=== PATIENT | female | born 1990 | race Caucasian/White ===

== ENCOUNTER → 2019-11-12 13:04 | Outpatient (CLI) | payer OTHER, SELFPAY ==
[2019-11-12 11:46] VITALS: BMI 26.9
[2019-11-12 13:27] LABS: Absolute Lymphocyte Count 2.48 X10^3/uL (0.83-4.51); Absolute Neutrophil Count 9.4 X10^3/uL (2.0-7.7); Basophil# 0.03 X10^3/uL; Basophil% 0.2 % (0-1); Eosinophil# 0.05 X10^3/uL; Eosinophils% 0.4 % (0-5); Hematocrit 38.1 % (37-47); Hemoglobin 12.9 g/dL (12.0-15.0); Lymphocyte # 2.48 X10^3/ul (4.0); Lymphocyte % 18.7 % (19-41); Mean Corp Hgb Conc 33.9 g/dL (32-36); Mean Corpuscular Hgb 31.3 pg (27.0-32.0); Mean Corpuscular Volume 92.5 fL (81-99); Mean Platelet Vol. 10.3 fl (6.2-12.0); Monocyte# 1.29 X10^3/uL; Monocyte% 9.7 % (0-10); NRBC Flagged by Analyzer 0 % (0-5); Neutrophil # 9.38 X10^3/uL (2.7-7.7); Neutrophil % 70.6 % (47-70); Platelet Count 279 K/mm3 (150-450); RBC Distribution Width CV 11.9 % (11.6-14.6); Red Blood Count 4.12 M/mm3 (4.2-5.4); White Blood Count 13.3 K/mm3 (4.4-11.0)
[2019-11-12 15:51] LABS: HIV - WCH Non-Reactive (Nonreactive); Hepatitis B Surface Antigen Non-Reactive (Nonreactive); Hepatitis C Antibody Non-Reactive (Nonreactive); Rubella IgG 349.2 IU/mL
[2019-11-12 16:35] LABS: Amphetamine Urine VISTA NEGATIVE (<1000 ng/mL); Barbiturate Urine VISTA NEGATIVE (< 200 ng/mL); Benzodiazepine Urine VISTA NEGATIVE (< 200 ng/mL); Cocaine Urine VISTA NEGATIVE (< 300 ng/mL); Ecstacy Urine VISTA NEGATIVE (< 500 ng/mL); Methadone Urine VISTA NEGATIVE (< 300 ng/mL); PCP Urine VISTA NEGATIVE (< 25 ng/mL); THC Urine VISTA NEGATIVE (< 50 ng/mL); Vista UDS pH Range 6
[2019-11-12 18:00] LABS: Chlamydia Trachomatis by PCR Negative (Negative); Neisserai gonorrhoeae by PCR Negative (Negative); Probe Check PASS; Sample Adequacy Control PASS; Specimen Processing Control PASS
[2019-11-12 23:59] LABS: Rapid Plasmin Reagin (RPR) NONREACTIVE (NONREACTIVE)
[2019-11-15 20:26] LABS: HPV Reflexed? NOT INDICATED
== END ==
PROVIDERS: PCP Physician Assistant; Referring Provider Obstetrics & Gynecology; Visit Provider Obstetrics & Gynecology
DX: Z34.90 Encounter for supervision of normal pregnancy, unspecified, unspecified trimester (principal); Z12.4 Encounter for screening for malignant neoplasm of cervix
CPT/HCPCS: 36415; 80307; 85025; 86592; 86703; 86762; 86803; 86850; 86900; 86901; 87086; 87088; 87340; 87491; 87591; 88175; G0145

== ENCOUNTER → 2019-11-17 | Outpatient (CLI) | payer OTHER, SELFPAY ==
[2019-11-12 11:46] VITALS: BMI 26.9
== END | disposition home or self-care (01) ==
LOC: PAVLAB 10:31
PROVIDERS: PCP Physician Assistant; Referring Provider Obstetrics & Gynecology; Visit Provider Obstetrics & Gynecology
DX: Z34.81 Encounter for supervision of other normal pregnancy, first trimester (principal); Z31.430 Encounter of female for testing for genetic disease carrier status for procreative management

== ENCOUNTER → 2020-03-12 | Outpatient (CLI) | payer OTHER, SELFPAY ==
[2020-02-19 14:10] VITALS: BMI 27.8
[2020-03-12 17:29] LABS: Absolute Neutrophil Count 9.4 X10^3/uL (2.0-7.7); Basophil# 0.06 X10^3/uL; Basophil% 0.4 % (0-1); Eosinophils% 0.7 % (0-5); Hematocrit 35.2 % (37-47); Hemoglobin 11.6 g/dL (12.0-15.0); Lymphocyte % 19.6 % (19-41); Mean Corpuscular Hgb 32.8 pg (27.0-32.0); Mean Corpuscular Volume 99.4 fL (81-99); Mean Platelet Vol. 10.4 fl (6.2-12.0); Monocyte# 1.21 X10^3/uL; Monocyte% 8.8 % (0-10); NRBC Flagged by Analyzer 0 % (0-5); Neutrophil # 9.43 X10^3/uL (2.7-7.7); Neutrophil % 68.5 % (47-70); Platelet Count 241 K/mm3 (150-450); RBC Distribution Width CV 12.6 % (11.6-14.6); RBC Distribution Width SD 45.3 fl (35.1-43.9); Red Blood Count 3.54 M/mm3 (4.2-5.4); White Blood Count 13.8 K/mm3 (4.4-11.0)
[2020-03-12 17:54] LABS: ALB/GLOB Ratio 0.7 RATIO (0.9-2.4); AST(SGOT) 20 U/L (15-37); Alanine Aminotransfer ALT/SGPT 33 U/L (13-56); Albumin, Serum 2.6 g/dL (3.2-5.0); Alkaline Phosphatase 67 U/L (45-117); Anion Gap 6 (5-15); BUN 8 mg/dL (7-18); BUN/Creat Ratio 12.3 RATIO (10-20); Chloride 107 mmol/L (98-107); Creatinine, Serum 0.65 mg/dL (0.55-1.02); EST Glomerular Filtration Rate 114 mL/min (>60); Est Glom Filt Rate - Afr Amer 138 mL/min (>60); Globulin 3.9 g/dL (2.2-4.2); Glucose 136 mg/dL (74-106); Glucose Challenge Gest 1H 50g 136 mg/dL (70-140); Potassium 3.4 mmol/L (3.5-5.1); Protein, Total 6.5 g/dL (6.4-8.2); Sodium Level 137 mmol/L (136-145)
== END | disposition home or self-care (01) ==
LOC: LAB 16:27
PROVIDERS: PCP Physician Assistant; Referring Provider Obstetrics & Gynecology; Visit Provider Obstetrics & Gynecology
DX: Z34.00 Encounter for supervision of normal first pregnancy, unspecified trimester (principal)
CPT/HCPCS: 36415; 80053; 82950; 85025

== ENCOUNTER → 2020-03-18 | Outpatient (CLI) | payer OTHER, SELFPAY ==
[2020-03-15 10:34] VITALS: BMI 27.8
[2020-03-18 10:56] LABS: Glucose GTT-Gestation. Fasting 68 mg/dL (<105)
[2020-03-18 11:54] LABS: Glucose GTT-Gestational 1 Hr 134 mg/dL (<190)
[2020-03-18 13:40] LABS: Glucose GTT-Gestational 2 Hr 143 mg/dL (<165)
[2020-03-18 13:46] LABS: Glucose GTT-Gestational 3 Hr 136 L (<145)
== END | disposition home or self-care (01) ==
LOC: LAB 10:02
PROVIDERS: PCP Physician Assistant; Referring Provider Obstetrics & Gynecology; Visit Provider Obstetrics & Gynecology
DX: Z13.1 Encounter for screening for diabetes mellitus (principal)
CPT/HCPCS: 36415; 82951; 82952

== ENCOUNTER → 2020-05-17 | Outpatient (CLI) | payer OTHER, SELFPAY ==
[2020-05-13 13:37] VITALS: BMI 30.2
--- NOTE | 2020-05-17 12:28 | US_ITS ---
STUDY: SECOND AND THIRD TRIMESTER OBSTETRICAL ULTRASOUND REASON FOR EXAM: Female, 30 years old growth LMP: 09/02/2019. TECHNIQUE: Transabdominal TECHNICAL QUALITY: Adequate. PRIOR ULTRASOUND: None. FINDINGS: There is a single intrauterine fetus. The fetus is in a cephalic presentation. There is demonstrated cardiac activity with a heart rate of 132 bpm. There is a normal amniotic fluid volume. The largest amniotic fluid pocket measures 5.4 cm. The amniotic fluid index (NIDA) is within normal limits. The placenta is anterior in location and is not low lying. There are Grade 1 placental changes. The cervix measures 3.5 cm in length. The adnexal regions are not visualized. BIOMETRY: BPD: 9.0 cm: 36 weeks, 3 days HC: 32.44 cm: 36 weeks, 5 days AC: 34.85 cm: 38 weeks, 5 days FL: 6.78 cm: 34 weeks, 5 days CI: 81.4% FL/BPD: 75.2% FL/HC: FL/AC: 19.5% HC/AC: 0.93 age by current US: 36 weeks, 3 days. JEWEL by current US: 06/11/2020. Estimated weight: 3193 grams, +/- 473 grams, 69 %. Age by LMP: 37 weeks, 6 days. JEWEL by LMP: 06/08/2020. US/OB Limited With Biometrics IMPRESSION: Single live uterine gestation with mean gestational age of 36 weeks and 3 days. Electronically Signed: Chad Shaw, at 13:31 EDT , Service support ,
== END | disposition home or self-care (01) ==
LOC: OPUS 12:28
PROVIDERS: PCP Physician Assistant; Referring Provider Obstetrics & Gynecology; Visit Provider Obstetrics & Gynecology
DX: Z34.00 Encounter for supervision of normal first pregnancy, unspecified trimester (principal)
CPT/HCPCS: 76816

== ENCOUNTER → 2020-05-20 | Outpatient (CLI) | payer OTHER, SELFPAY | END | disposition home or self-care (01) | LOC: LABSPEC 16:18 | PROVIDERS: PCP Physician Assistant; Visit Provider Obstetrics & Gynecology | DX: Z34.93 Encounter for supervision of normal pregnancy, unspecified, third trimester (principal); Z3A.36 36 weeks gestation of pregnancy | CPT/HCPCS: 87081 ==

== ENCOUNTER 2020-06-05 17:10 | Inpatient (IN) | payer OTHER, SELFPAY ==
[2020-04-12 11:14] VITALS: BMI 26.9
[2020-06-03 10:17] VITALS: BMI 30.5
[2020-06-05] VITALS (30 sets, daily range): BP systolic 96–143; BP diastolic 46–76; PULSE 61–99; TEMP 36.4–37.3; O2SAT 97–100; BMI 29.5
[2020-06-05] MEDS: Lactated Ringers 1,000 ML 200 ML IV ×2 (17:45→19:40)
[2020-06-05 18:06] LABS: Absolute Neutrophil Count 13.2 X10^3/uL (2.0-7.7); Basophil# 0.05 X10^3/uL; Basophil% 0.3 % (0-1); Hematocrit 39.7 % (37-47); Hemoglobin 13.4 g/dL (12.0-15.0); Lymphocyte % 10.9 % (19-41); Mean Corp Hgb Conc 33.8 g/dL (32-36); Mean Corpuscular Volume 97.8 fL (81-99); Mean Platelet Vol. 10.6 fl (6.2-12.0); Monocyte# 1.23 X10^3/uL; Monocyte% 7.4 % (0-10); NRBC Flagged by Analyzer 0 % (0-5); Neutrophil # 13.21 X10^3/uL (2.7-7.7); Platelet Count 236 K/mm3 (150-450); RBC Distribution Width CV 12.5 % (11.6-14.6); Red Blood Count 4.06 M/mm3 (4.2-5.4); White Blood Count 16.5 K/mm3 (4.4-11.0)
[2020-06-05] MEDS: Lactated Ringers 500 ML 999 ML IV (18:06)
[2020-06-05] MEDS: ePHEDrine Sulfate 50 MG/ML Ampul 10 MG IM (19:16)
[2020-06-05] MEDS: fentaNYL-bupivacaine (epidural) 100 ML BAG EPIDURAL (19:41)
[2020-06-05] MEDS: Mag Hydrox/Al Hydrox/Simeth 30 ML UDC PO (19:57)
--- NOTE | 2020-06-05 22:53 | HP.PCM_ITS ---
- Problem List (1) 36 weeks gestation of Status: Acute Comment: covid testing negative testing at work 05/31/20 (2) Abnormal glucose affecting Status: Acute Comment: normal 3 hr. (3) Status: Acute Qualifiers: Comment: NIPT low risk. CARRIER- neg and NTD declined. 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 Is patient in pain?: No Allergies No Known Allergies Allergy (Verified 06/03/20 10:17) Medications acetaminophen 325 mg tablet 325 mg PO ONCE PRN 11/12/19 history Confirmed 06/03/20 famotidine 20 mg tablet 20 mg PO BID 11/12/19 history Confirmed 06/03/20 multivitamin no.47-iron fum 27 mg-folate no.1 1 mg-dha 300 mg capsule cap PO 11/12/19 history Confirmed 06/03/20 Last Menstral Period: 09/02/19 Zika: Zika virus screening: Negative : No PFSH PFSH Medical History Recurrent UTI (Acute) Surgical History No history of previous surgery (Acute) Family History Father Cancer Diabetes Grandmother Breast cancer Cancer Social History (Updated 06/03/20 @ 10:[address] 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 She has had an uncomplicated OB Visit JEWEL Calculator Estimated Delivery Date Method Current WG Current Estimate 06/08/20 LMP (Certain) 39w 2d Expected Delivery Route/Plan Labor Preferences- CB/BF classes: march labor support person: Tia labor intervention preferences: no pain management options preferred: desires natural, but open to epidural especially if induced cut cord/dad catch: yes : yes PP control planned: discussed possible routes of delivery and associated risks: discussed possible delivery modalities and possible indications for each including R/B/A of , VAVD, and CS. questions answered. special requests: Specific Issue/Plans flu vaccine: 04/12 tdap vaccine: given 03/15 rhogam: na LARC form signed: declined movement and labor precautions reviewed. Problem list reviewed and updated with the most current plan of care details and appropriate orders placed. Relevant counseling for the gestational age provided. Continue routine care and follow up unless otherwise noted in visit notes/problem list details Initial Weight: 157 lb Date EGA Weight BP Urine Prot Glucose FHR FuHt Pres Dilation Effaced St Visit Note 12/25/19 16w 2d 154 lb (-3 lb) 124/76 Negative Negative 143 MH-No Vb, LOF. MFM US scheduled. Declines AFP. 01/22/20 20w 2d 158 lb 4 oz (+1 lb 4 oz) 108/70 Negative Negative 140 SM- no vb lof good fm no regular ctx boy 02/19/20 24w 2d 162 lb (+5 lb) 102/64 Negative Negative 140 SM- no vb lof good fm no regular ctx obtain anatomy report. encouraged CB classes 03/15/20 27w 6d 164 lb 6 oz (+7 lb 6 oz) 110/60 Negative Negative 140 SM- planning on CB clsses, will sign up. tdap given. just moved into new house. 04/01/20 30w 2d 168 lb (+11 lb) 100/72 Negative Negative 140 30 SM- no vb lof good fm no regular ctx. discussed control. iud pp planned pp 04/12/20 31w 6d 169 lb 8 oz (+12 lb 8 oz) 128/78 150 30 GP - no LOF, VB, DFM, ctx. CB classes planned this weekend. 04/29/20 34w 2d 172 lb (+15 lb) 118/86 Negative Negative 150 34 Cephalic Sm- no vb lof good fm no regular ctx 05/13/20 36w 2d 176 lb (+19 lb) 118/86 Negative Negative 145 34 Cephalic SM- no vb lof good fm no rgular ctx fh measuring low check growth us 05/20/20 37w 2d 175 lb (+18 lb) 102/74 Negative Negative 140 36 Cephalic 0 SM- no vb lof good fm no regular ctx 05/26/20 38w 1d 94/66 Negative Negative 135 37 Cephalic 1 SM- no vb lof good fm n oregular ctx 06/03/20 39w 2d 178 lb (+21 lb) 100/98 135 37 Cephalic 1 60 -2 SM- no vb lof good fm no regular ctx Diagnostics Diagnostics Diagnostics Gest Glucose Tolerance MG/DL 03/18/20 Glucose 1 Hr 50 gm 136 mg/dL (70-140) 03/12/20 Hgb 11.6 g/dL (12.0-15.0) L 03/12/20 Hct 35.2 % (37-47) L 03/12/20 Details: HIV: Urine Culture: Sequential Screen: NIPT Screen: ROS Const Reports system reviewed and no additional complaints, except as documented Card Reports system reviewed and no additional complaints, except as documented Resp Reports system reviewed and no additional complaints, except as documented GI Reports system reviewed and no additional complaints, except as documented, Reports nausea Reports system reviewed and no additional complaints, except as documented Musc Reports system reviewed and no additional complaints, except as documented all other systems reviewed and negative Exam Const General: cooperative, healthy appearing, comfortable HENMT Head: normal to inspection Nose: external nose normal Face and sinus: normal facial exam Neck Neck: normal visual inspection, full ROM, no lymphadenopathy Thyroid: thyroid normal Chest Chest palpation & inspection: normal inspection of the chest Resp Effort & Inspection: normal respiratory effort GI Inspection: normal to inspection Palpation: soft, other (gravid uterus) Other: vertex and appropriate size for gestational age Other: Cervical Exam: 100/0 Extrem General: pedal edema Assessment & Plan Problems 1. Z34.90 NIPT low risk. CARRIER- neg and NTD declined. anatomy us normal 2. Supervision of normal first Z34.00 PRR JEWEL 06/08/20 surprise for family- boy SPOUSE: TIA 3. Abnormal glucose affecting O99.810 normal 3 hr. 4. 36 weeks gestation of Z3A.36 covid testing negative testing at work 05/31/20 37-year-old at 39 weeks 4 days presents in active labor Patient presents IAL, plan expectant management for , pitocin/AROM if needed. Pain management: Plans epidural. GBS negative. Management of any complications: None I have reviewed the [facility] and made any clinically relevant updates. Orders Orders: POC Urinalysis 2 Dip (Clinic) Today Coding Level of Care Code OB Routine Diagnoses Z34.90 Supervision of normal first Z34.00 Abnormal glucose affecting O99.810 36 weeks gestation of Z3A.36 UPDATE- I have seen the patient and performed any clinically relevant updates to the history and physical exam. Danika Willams MD
--- NOTE | 2020-06-05 22:55 | OP.PCM_ITS ---
Problem List (1) 36 weeks gestation of Status: Acute Comment: covid testing negative testing at work 05/31/20 (2) Abnormal glucose affecting Status: Acute Comment: normal 3 hr. (3) Status: Acute Qualifiers: Comment: NIPT low risk. CARRIER- neg and NTD declined. anatomy us normal (4) Supervision of normal first Status: Acute Qualifiers: Comment: PRR JEWEL 06/08/20 surprise for family- boy SPOUSE: TIA (5) Active labor at term Status: Acute Vaginal Delivery Maternal Presentation: Active Labor 30-year-old G1, P0 at 39 and 4 presents in active labor Amniotic Membrane Rupture Type: Artificial Amniotic Fluid Description: Clear Final JEWEL: 06/08/20 Gestational age: 39 Weeks and 4 Days Date of Procedure: 06/05/20 Pre-Operative Diagnosis: ial Post-Operative Diagnosis: same Surgery/ Procedure Performed: Spontaneous Vaginal Delivery Type of Anesthesia: Epidural Description of Procedure: Patient began pushing and delivered the head in the JLUIS presentation. The head was delivered atraumatically and a loose nuchal cord x1 was identified and the was delivered through it. The anterior and posterior shoulders delivered without complication followed by the rest of the infant and the infant was placed on the maternal abdomen. Delayed cord clamping was employed for approximately 60 seconds. Cord was clamped and cut and gentle traction was applied to the cord and the placenta delivered spontaneously immediately following it was noted to be intact with three-vessel cord. The perineum and vagina were inspected and noted to have a small first-degree perineal laceration that was repaired with a single [id number] stitches 3-0 Vicryl Rapide. EBL was 200 cc. Patient and infant tolerated delivery well. Presentation: JLUIS Placental Delivery Description: Spontaneous Placenta Disposition: [facility] Cord Vessel Description: 3 Vessels Cord Entanglement: Around neck x 1, loose Estimated Blood Loss: 200 A gender: Male Episiotomy Description: None Laceration: Perineal Extension/lac, 1st degree Medications given after delivery: IV Pitocin, IM Methergin - sec mild uterine atony Complications: None Multi Select Codes - Urinary/Genital Urinary/Genital CPT Codes: 57905 Vaginal Delivery [facility]
[2020-06-05] MEDS: Oxytocin 30 units/NS 500 ml 30 UNITS/500 ML IV.SOLN 334 UNITS IV (23:50)
[2020-06-06] VITALS (14 sets, daily range): BP systolic 100–132; BP diastolic 46–72; PULSE 73–99; RESP 16–18; TEMP 36.4–37.1
[2020-06-06] MEDS: Methylergonovine 0.2 MG/ML Ampul IM (00:08)
[2020-06-06] MEDS: Ondansetron 4 MG/2 ML Vial IV (00:14)
[2020-06-06] MEDS: Naproxen 250 MG Tablet 500 MG PO ×2 (00:57→14:32)
--- NOTE | 2020-06-06 06:17 | PCM.PN.OB ---
Patient Problems: Active and Suspected Problems (Last Reviewed 06/03/20 @ 10:17 by Tanesha Rai) Active labor at term (Acute) 36 weeks gestation of (Acute) covid testing negative testing at work 05/31/20 Abnormal glucose affecting (Acute) normal 3 hr. Supervision of normal first (Acute) PRR JEWEL 06/08/20 surprise for family- boy SPOUSE: TIA (Acute) NIPT low risk. CARRIER- neg and NTD declined. anatomy us normal Subjective: Patient doing well without complaints. Tolerating PO. Ambulating and voiding without difficulty. breast feeding well. Denies chest pain, shortness of breath, calf pain/swelling, fevers, chills, lightheadedness. - Physical Exam Vitals/I&O's: Vital Signs Temp Pulse Resp BP Pulse Ox 98.8 F 93 16 108/59 L 98 06/06/20 03:50 06/06/20 03:50 06/06/20 03:50 06/06/20 03:50 06/05/20 19:50 Weight: 172 lb 6.424 oz Body Mass Index (BMI) 29.5 Intake and Output for Last 24 Hours 06/04/20 06/05/20 06/06/20 23:59 23:59 23:59 Intake Total 1716.66 / 1716.66 167 / 167 Output Total 300 / 300 900 / 900 Balance 1416.66 / 1416.66 -733 / -733 General: Alert, Oriented x3 Laboratory Results 06/05/20 17:45: WBC 16.5 H, RBC 4.06 L, Hgb 13.4, Hct 39.7, MCV 97.8, MCH 33.0 H, MCHC 33.8, RDW Std Deviation 45.0 H, RDW Coeff of Roz 12.5, Plt Count 236, MPV 10.6, Immature Gran % (Auto) 1.400 H, Neut % (Auto) 80.0 H, Lymph % (Auto) 10.9 L, Coffee % (Auto) 7.4, Eos % (Auto) 0.0, Baso % (Auto) 0.3, Absolute Neuts (auto) 13.2 H, Absolute Lymphs (auto) 1.80, Nucleated RBC % 0 06/05/20 17:45: Blood Type A POSITIVE, Antibody Screen NEGATIVE Current Medications Acetaminophen (Acetaminophen 500 Mg Tablet) 1,000 mg PO Q8H PRN PRN PRN Reason: Pain Score 1-3 Bisacodyl (Bisacodyl 10 Mg Suppository) 10 mg RECTAL UD PRN PRN Reason: If no BM Dibucaine (Dibucaine 30 Gm Tube) 1 applic TOPICAL TID PRN PRN; Protocol PRN Reason: Discomfort Hydrocortisone (Hydrocortisone 2.5% Crm) 1 applic TOPICAL TID PRN PRN; Protocol PRN Reason: Discomfort Methylergonovine Maleate (Methylergonovine 0.2 Mg/Ml Ampul) 0.2 mg IM X1 PRN PRN Reason: Excess bleeding/uterine atony Last Admin: 06/06/20 00:08 Dose: 0.2 mg Documented by: Naproxen (Naproxen 250 Mg Tablet) 500 mg PO Q8H PRN PRN PRN Reason: Pain Score 1-3 Last Admin: 06/06/20 00:57 Dose: 500 mg Documented by: Ondansetron HCl (Ondansetron 4 Mg/2 Ml Vial) 4 mg IV Q4H PRN PRN PRN Reason: Nausea Last Admin: 06/06/20 00:14 Dose: 4 mg Documented by: Oxycodone HCl (Oxycodone 5 Mg Tablet) 5 - 10 mg PO Q4H PRN PRN PRN Reason: Pain Score 4-10 Senna/Docusate Sodium (Senna/Docusate Sodium 1 Tablet) 1 - 2 tablet PO DAILY PRN PRN PRN Reason: Constipation Simethicone (Simethicone 80 Mg Tablet) 80 mg PO PCHS PRN PRN Reason: Indigestion/Stomach pain Sodium Chloride (0.9% Saline Lock 10 Ml Syringe) 5 - 15 ml IV UD PRN PRN Reason: SALINE FLUSH Medical Necessity - Tobacco Use Smoking Status: Never smoker Assessment/Plan All Active Problems (Last Reviewed 06/03/20 @ 10:17 by Tanesha Rai) Active labor at term (Acute) 36 weeks gestation of (Acute) Abnormal glucose affecting (Acute) Supervision of normal first (Acute) (Acute) Recurrent UTI (Resolved) s/p PPD # 1 1. routine post delivery care 2. breast feeding- support given 3. rh positive 4. rubella immune
--- NOTE | 2020-06-06 06:25 | DCINST_ITS ---
Discharge Diet: No Restrictions Discharge Activity: Return to Normal Activity, May not drive while taking narcotic pain medications., May Shower May resume sexual activity in: 4-6 weeks Call your doctor if your incision/area has: Continuous Slow Oozing, Sudden Increased Bleeding, Increased Pain/ Swelling, Increased Redness, Foul Smelling Discharge Additional Instructions: If you experience any of the following, contact your healthcare provider. * Bleeding that soaks a pad every hour for 2 hours * Fever 100.4 or higher * Unrelieved incision or abdominal pain * Swelling, redness, discharge or bleeding from your incision or episiotomy site * Your incision begins to separate * Problems urinating (including inability to urinate or burning while urinating). * Visual changes * Severe headache * Flu-like symptoms * Pain or redness in one of both of your breasts * Pain, warmth, tenderness or swelling in your legs, especially the calf area * Frequent nausea and vomiting * Symptoms of depression or anxiety If you experience any of the following, call 911 or go to the nearest Emergency Room. * Chest pain * Problems breathing * Seizure activity * Partial or complete paralysis of a body part, slurred speech, weakness or drooping of the face, or a sudden inability to walk or hold your balance Allergies/Adverse Reactions: Allergies No Known Allergies Allergy (Verified 06/03/20 10:17) Medications to take at Discharge acetaminophen 325 mg tablet 325 mg PO ONCE PRN 11/12/19 famotidine 20 mg tablet 40 mg PO BID 11/12/19 multivitamin no.47-iron fum 27 mg-folate no.1 1 mg-dha 300 mg capsule 1 cap PO 11/12/19 Naproxen [Naprosyn] 250 - 500 mg PO Q8H PRN PRN #30 tab 06/06/20 The following prescriptions were given: Naproxen [Naprosyn] 250 - 500 mg PO Q8H PRN PRN #30 tab PRN Reason: MILD PAIN Transmission Status: Pending to [facility] Please Follow Up With: Danika Willams MD - [phone] When: Call to make an appointment with your doctor in 6 weeks. If you had elevated Blood pressure or 4th degree laceration you will need to be seen in 2 weeks. Primary Care Physician: Nilda Anderson PA [Primary Care Provider] - Test Results: Test results from this visit will be discussed in further detail at your follow- up appointment, if applicable.
[2020-06-06] MEDS: Acetaminophen 500 MG Tablet 1000 MG PO (19:57)
[2020-06-07 02:30] VITALS: BP 87/49; PULSE 60; RESP 16; TEMP 36.4
[2020-06-07] MEDS: Acetaminophen 500 MG Tablet 1000 MG PO (04:59)
--- NOTE | 2020-06-07 08:37 | PCM.PN.OB ---
Patient Problems: Active and Suspected Problems (Last Reviewed 06/03/20 @ 10:17 by Tanesha Rai) Active labor at term (Acute) 36 weeks gestation of (Acute) covid testing negative testing at work 05/31/20 Abnormal glucose affecting (Acute) normal 3 hr. Supervision of normal first (Acute) PRR JEWEL 06/08/20 surprise for family- boy SPOUSE: TIA (Acute) NIPT low risk. CARRIER- neg and NTD declined. anatomy us normal Subjective: Patient doing well without complaints. Tolerating PO. Ambulating and voiding without difficulty. [ ] feeding well. Denies chest pain, shortness of breath, calf pain/swelling, fevers, chills, lightheadedness. - Physical Exam Vitals/I&O's: Vital Signs Temp Pulse Resp BP Pulse Ox 97.5 F L 60 16 87/49 L 98 06/07/20 02:30 06/07/20 02:30 06/07/20 02:30 06/07/20 02:30 06/05/20 19:50 Oxygen Delivery Method Room Air Weight: 172 lb 6.424 oz Body Mass Index (BMI) 29.5 Intake and Output for Last 24 Hours 06/05/20 06/06/20 06/07/20 23:59 23:59 23:59 Intake Total 1716.66 / 1716.66 500 / 500 Output Total 300 / 300 900 / 900 Balance 1416.66 / 1416.66 -400 / -400 General: Alert, Oriented x3 Current Medications Acetaminophen (Acetaminophen 500 Mg Tablet) 1,000 mg PO Q8H PRN PRN PRN Reason: Pain Score 1-3 Last Admin: 06/07/20 04:59 Dose: 1,000 mg Documented by: Bisacodyl (Bisacodyl 10 Mg Suppository) 10 mg RECTAL UD PRN PRN Reason: If no BM Dibucaine (Dibucaine 30 Gm Tube) 1 applic TOPICAL TID PRN PRN; Protocol PRN Reason: Discomfort Hydrocortisone (Hydrocortisone 2.5% Crm) 1 applic TOPICAL TID PRN PRN; Protocol PRN Reason: Discomfort Methylergonovine Maleate (Methylergonovine 0.2 Mg/Ml Ampul) 0.2 mg IM X1 PRN PRN Reason: Excess bleeding/uterine atony Last Admin: 06/06/20 00:08 Dose: 0.2 mg Documented by: Naproxen (Naproxen 250 Mg Tablet) 500 mg PO Q8H PRN PRN PRN Reason: Pain Score 1-3 Last Admin: 06/06/20 14:32 Dose: 500 mg Documented by: Ondansetron HCl (Ondansetron 4 Mg/2 Ml Vial) 4 mg IV Q4H PRN PRN PRN Reason: Nausea Last Admin: 06/06/20 00:14 Dose: 4 mg Documented by: Oxycodone HCl (Oxycodone 5 Mg Tablet) 5 - 10 mg PO Q4H PRN PRN PRN Reason: Pain Score 4-10 Senna/Docusate Sodium (Senna/Docusate Sodium 1 Tablet) 1 - 2 tablet PO DAILY PRN PRN PRN Reason: Constipation Simethicone (Simethicone 80 Mg Tablet) 80 mg PO PCHS PRN PRN Reason: Indigestion/Stomach pain Sodium Chloride (0.9% Saline Lock 10 Ml Syringe) 5 - 15 ml IV UD PRN PRN Reason: SALINE FLUSH Medical Necessity - Tobacco Use Smoking Status: Never smoker Assessment/Plan All Active Problems (Last Reviewed 06/03/20 @ 10:17 by Tanesha Rai) Active labor at term (Acute) 36 weeks gestation of (Acute) Abnormal glucose affecting (Acute) Supervision of normal first (Acute) (Acute) Recurrent UTI (Resolved) s/p PPD # 1 1. routine post delivery care 2. breast feeding- support given 3. rh positive 4. rubella immune
[2020-06-07 08:45] VITALS: BP 111/70; PULSE 82; RESP 16; TEMP 37.1
[2020-06-07 13:59] VITALS: BP 103/61; PULSE 77; RESP 16; TEMP 37.1
== END 2020-06-07 14:10 | disposition home or self-care (01) | DRG 807 ==
LOC: WPOUT 17:15 → WP 17:15
PROVIDERS: Admitting Provider Obstetrics & Gynecology; PCP Physician Assistant; Visit Provider Obstetrics & Gynecology
DX: O69.81X0 Labor and delivery complicated by cord around neck, without compression, not applicable or unspecified (principal); Z37.0 Single live birth; O70.0 First degree perineal laceration during delivery; O62.2 Other uterine inertia; Z3A.39 39 weeks gestation of pregnancy
CPT/HCPCS: 59025; 59050; 85025; 86850; 86900; 86901; 99218; J7120; G0378; J2405

== ENCOUNTER → 2021-03-25 16:02 | Outpatient (CLI) | payer OTHER, SELFPAY ==
--- NOTE | 2021-03-25 16:07 | US_ITS ---
INDICATION: RECURRENT UTI EXAMINATION: Ultrasound US Kidney(s) complete (eg, kidneys and bladder) TECHNIQUE: Upton scale and color doppler images were obtained of the kidneys. COMPARISON: None. FINDINGS: RIGHT KIDNEY: 105.9 mL volume. Slight prominence right pelvis likely represents extrarenal pelvis however as a ureteral jet on the right. No caliectasis. No shadowing calculus, focal lesion or perinephric collection is demonstrated. LEFT KIDNEY: 141.8 mL volume. There is no hydronephrosis. No shadowing calculus, focal lesion or perinephric collection is demonstrated. Normal aside ureteral jet demonstrated. URINARY BLADDER: Bladder is distended with anechoic fluid and there is no wall thickening, mass or internal debris. No evidence of pyelonephritis. US/Kidney and Bladder IMPRESSION: Likely right-sided extrarenal pelvis versus less likely slight pelvis dilation. No associated caliectasis. This is favored to represent normal extra renal pelvis. Nonvisualization right ureteral jet can be due to inadequate length of observation. Right-sided obstruction cannot be completely excluded but is felt to be unlikely. Consider short-term follow-up. Electronically Signed: Maynor Lu DO at 23:25 EDT Tel , Service support ,
== END ==
PROVIDERS: PCP Physician Assistant; Referring Provider Urology; Visit Provider Urology
DX: N39.0 Urinary tract infection, site not specified (principal)
CPT/HCPCS: 76770

== ENCOUNTER → 2022-07-27 | Outpatient (CLI) | payer OTHER, SELFPAY ==
[2022-08-01 16:37] LABS: HPV APTIMA, High Risk Negative (Negative)
== END | disposition home or self-care (01) ==
PROVIDERS: PCP Physician Assistant; Visit Provider Obstetrics & Gynecology
DX: Z12.4 Encounter for screening for malignant neoplasm of cervix (principal)
CPT/HCPCS: 87624; 88175; G0145

== ENCOUNTER → 2023-03-15 | Outpatient (CLI) | payer OTHER, SELFPAY ==
[2023-03-19 07:07] LABS: Chlamydia By Nucleic Acid AMP Negative (Negative); Gonococcus By Nucleic Acid AMP Negative (Negative)
== END | disposition home or self-care (01) ==
LOC: LABSPEC 13:55
PROVIDERS: PCP Physician Assistant; Referring Provider Obstetrics & Gynecology; Visit Provider Obstetrics & Gynecology
DX: Z34.90 Encounter for supervision of normal pregnancy, unspecified, unspecified trimester (principal); Z3A.00 Weeks of gestation of pregnancy not specified
CPT/HCPCS: 87086; 87491; 87591

== ENCOUNTER → 2023-03-29 | Outpatient (CLI) | payer OTHER, SELFPAY ==
[2023-03-29 13:51] LABS: Absolute Lymphocyte Count 2.43 X10^3/uL (0.83-4.51); Absolute Neutrophil Count 9.3 X10^3/uL (2.0-7.7); Basophil# 0.04 X10^3/uL; Basophil% 0.3 % (0-1); Eosinophil# 0.15 X10^3/uL; Eosinophils% 1.2 % (0-5); Hematocrit 37.3 % (37-47); Hemoglobin 12.3 g/dL (12.0-15.0); Lymphocyte # 2.43 X10^3/ul (0.83-4.51); Lymphocyte % 18.9 % (19-41); Mean Corpuscular Hgb 32.1 pg (27.0-32.0); Mean Corpuscular Volume 97.4 fL (81-99); Mean Platelet Vol. 10.4 fl (6.2-12.0); Monocyte# 0.87 X10^3/uL; Monocyte% 6.8 % (0-10); NRBC Flagged by Analyzer 0 % (0-5); Neutrophil # 9.27 X10^3/uL (2.7-7.7); Neutrophil % 72.2 % (47-70); Platelet Count 277 K/mm3 (150-450); RBC Distribution Width CV 12.1 % (11.6-14.6); RBC Distribution Width SD 42.8 fl (35.1-43.9); Red Blood Count 3.83 M/mm3 (4.2-5.4); White Blood Count 12.8 K/mm3 (4.4-11.0)
[2023-03-29 14:44] LABS: NATERA MAILED SPECIMEN
[2023-03-29 15:09] LABS: HIV - WCH Non-Reactive (Nonreactive); Hepatitis B Surface Antigen Non-Reactive (Nonreactive); Hepatitis C Antibody Non-Reactive (Nonreactive); Rubella IgG Reactive (Nonreactive); Syphilis Antibodies Non-reactive
== END | disposition home or self-care (01) ==
LOC: PAVLAB 13:16
PROVIDERS: PCP Physician Assistant; Referring Provider Obstetrics & Gynecology; Visit Provider Obstetrics & Gynecology
DX: Z34.81 Encounter for supervision of other normal pregnancy, first trimester (principal)
CPT/HCPCS: 36415; 85025; 86703; 86762; 86780; 86803; 86850; 86900; 86901; 87340

== ENCOUNTER → 2023-08-01 | Outpatient (CLI) | payer OTHER, SELFPAY ==
--- OUTSIDE RECORDS SUMMARY | 2023-08-01 10:45 | XMS RPT_ITS | CCD ---
Author Name Unknown Address [address] [place] [address] Organization [facility] Care Team Providers Care Manager Garage Name Role Phone Laura PHOTOGRAMMETRIC TECHNICIAN.Liyah HUMPHREY Primary Care Provider CAROLINA PHILIP Attending Unavailable LIYAH SANCHEZ Primary Care Unavailable CELIA SAENZ Referring Unavailab YANETH Negro Attending Unavailable ARASELI VANG Primary Care Unavailable CELIA SAENZ Referring Unavailab BEVERLEY Gonzalez Attending Unavailable ARASELI VANG Primary Care Unavailable Allergies Allergy Classification Reported Allergen(s) Allergy Type Date of Onset Reaction(s) Facility (8 sources) Seasonal allergy; Translations: [SEASONAL ALLERGIES] Allergy to substance 9 Other: See Comments [facility] Medications Current Medications Medication Drug Class(es) Dates Sig (Normalized) Sig (Original) doxycycline monohydrate 100 mg oral tablet (1 source) Tetracycline-cla ss Drug Start: 01-06-2022 End: 01-13-2022 take 1 tablet by mouth twice daily doxycycline monohydrate 100 mg tablet Indications: Sinobronchitis Take 1 tablet by mouth twice daily for 7 days. 14 tablet 0 01/06/2022 01/13/2022 Active Completed/Discontinued Medications Medication Drug Class(es) Dates Sig (Normalized) Sig (Original) [id number] 200 actuat albuterol 0.09 mg/actuat metered dose inhaler (8 sources) beta2-Adrenergic Agonist Start: 06-04-2023 take 2 puff(s) by inhalation every four hours as needed albuterol HFA (PROAIR HFA) 90 mcg/actuation inhaler Indications: Mild intermittent extrinsic asthma without complication Inhale 2 Puffs as instructed every 4 hours as needed. 18 g 2 06/04/2023 Active Problems Active Problems Problem Classification Problem Date Documented Date Episodic/Chronic Asthma (9 sources) Uncomplicated allergic asthma; Translations: [Unspecified asthma, uncomplicated] Onset: 12-19-2018 12-19-2018 Chronic Esophageal disorders (7 sources) Gastroesophageal reflux disease without esophagitis; Translations: [Gastro-esophageal reflux disease without esophagitis] Onset: 12-19-2018 12-19-2018 Chronic Inflammation; infection of eye (except that caused by tuberculosis or sexually transmitteddisease) (1 source) Bacterial conjunctivitis; Translations: [Unspecified conjunctivitis] Episodic Other upper respiratory infections (1 source) Chronic sinusitis; Translations: [Chronic sinusitis, unspecified] Chronic Viral infection (2 sources) Herpes zoster with complication; Translations: [Zoster with other complications] Onset: 06-04-2023 06-04-2023 Episodic Past or Other Problems Problem Classification Problem Date Documented Date Episodic/Chronic Abdominal pain (12 sources) Pain in female pelvis; Translations: [Pelvic and perineal pain] Onset: 10-14-2021 Episodic Allergic reactions (7 sources) Environmental allergy; Translations: [Other allergy status, other than to drugs and biological substances] Onset: 12-19-2018 12-19-2018 Episodic Other diseases of bladder and urethra (12 sources) Urethral spasm; Translations: [Unspecified urethral stricture, male, unspecified site] Onset: 10-14-2021 Episodic Results Test Name Value Interpretation Reference Range Facil ity Vital Signs Date Time Vital Sign Value Performing Clinician Joãoi seamusy 06-04-2023 10:16-0500 Body weight 76.2 kg Carolina Philip APRN.CNP Work Phone: [facility] 06-04-2023 10:16-0500 Diastolic blood pressure 62 mm[Hg] Carolina Philip APRN.CNP Work Phone: [facility] 06-04-2023 10:16-0500 Heart rate 88 /min Carolina Philip APRN.CNP Work Phone: [facility] 06-04-2023 10:16-0500 Respiratory rate 14 /min Carolina Philip APRN.CNP Work Phone: [facility] 06-04-2023 10:16-0500 Systolic blood pressure 110 mm[Hg] Carolina Philip APRN.SUPERVISOR PRESSING DEPARTMENT Work Phone: [facility] 01-06-2022 16:30-0400 Body temperature 97.81 [degF] Feliz Ryan PHOTOGRAMMETRIC TECHNICIAN.SUPERVISOR PRESSING DEPARTMENT Work Phone: [facility] 01-06-2022 16:30-0400 Body weight 67.5 kg Feliz Ryan PHOTOGRAMMETRIC TECHNICIAN.SUPERVISOR PRESSING DEPARTMENT Work Phone: [facility] 01-06-2022 16:30-0400 Diastolic blood pressure 62 mm[Hg] Feliz Ryan PHOTOGRAMMETRIC TECHNICIAN.SUPERVISOR PRESSING DEPARTMENT Work Phone: [facility] 01-06-2022 16:30-0400 Heart rate 72 /min Feliz Ryan PHOTOGRAMMETRIC TECHNICIAN.SUPERVISOR PRESSING DEPARTMENT Work Phone: [facility] 01-06-2022 16:30-0400 Respiratory rate 21 /min Feliz Ryan PHOTOGRAMMETRIC TECHNICIAN.SUPERVISOR PRESSING DEPARTMENT Work Phone: [facility] 01-06-2022 16:30-0400 SaO2% (BldA) [Mass fraction] 99 % Feliz Ryan PHOTOGRAMMETRIC TECHNICIAN.SUPERVISOR PRESSING DEPARTMENT Work Phone: [facility] 01-06-2022 16:30-0400 Systolic blood pressure 108 mm[Hg] Feliz Ryan PHOTOGRAMMETRIC TECHNICIAN.SUPERVISOR PRESSING DEPARTMENT Work Phone: [facility] Encounters Encounter Date Encounter Type Care Provider Facility Start: 07-26-2023 End: 07-26-2023 ambulatory CELIA SAENZ [facility] Start: 06-04-2023 End: 06-05-2023 ambulatory CAROLINA PHILIP Facility:[facility] Start: 06-04-2023 End: 06-04-2023 Patient encounter procedure Carolina Philip PHOTOGRAMMETRIC TECHNICIAN.SUPERVISOR PRESSING DEPARTMENT Work Phone: [facility] Plan of Treatment Date Care Activity Detail Author Start: 03-15-2030 Urine microalbumin profile DTaP,Tdap,Td Vaccine (8 - Td or Tdap) [facility] Start: 07-27-2027 HPV Testing HPV Testing [facility] Start: 11-11-2024 PAP TESTING PAP TESTING [facility] Start: 01-28-2025 Urine microalbumin profile DTAP,TDAP,TD (7 - Td or Tdap) [facility] Start: 06-04-2024 Annual PCP Team Airplane Pilot saman Disease Visit Annual PCP Team Chronic Disease Visit [facility] Start: 03-23-2023 Covid-19 Vaccine ( season) Covid-19 Vaccine ( season) [facility] Start: 07-23-2022 Depression Assessment Depression Ass essment [facility] Start: 03-23-2022 Influenza vaccination INFLUENZA (Sea son Ended) [facility] Start: 03-23-2021 Influenza vaccination INFLUENZA (#1) [facility] Start: 2021 HPV TESTING HPV TESTING [facility] Start: 12-20-2019 ANNUAL PCP TEAM CARD TABLE ATTENDANT SAMAN DISEASE VISIT ANNUAL PCP TEAM CHRONIC DISEASE VISIT [facility] Start: 2009 HEPATITIS C SCREENING HEPATITIS C SC REENING [facility] Start: 2009 HIV SCREENING HIV SCREENING [facility] Start: 2009 SPIROMETRY SPIROMETRY [facility] Start: 2003 Adult depression screening assessment DEPRESSION SCREENING [facility] Start: 05-01-2002 Hepatitis B Vaccine (3 of 3 - 3-dose series) Hepatitis B Vaccine (3 of 3 - 3-dose series) [facility] Start: 1997 PNEUMOCOCCAL (1 - PCV) PNEUMOCOCCAL (1 - PCV) [facility] Start: 1997 Pneumococcal vaccination Pneum ococcal Vaccine (1 - PCV) [facility] Immunizations Immunization Date Immunization Notes Care Provider Romero gregg 05-31-2018 influenza, injectabl e, quadrivalent, contains preservative Amarilys Bailey PT Work Phone: [facility] 08-19-2014 tetanus toxoid, redu bill diphtheria toxoid, and acellular pertussis vaccine, adsorbed Amarilys Bailey PT Work Phone: [facility] 03-04-2002 hepatitis B vaccine, adult dosage Amarilys Bailey PT Work Phone: [facility] 01-09-2002 diphtheria, tetanus toxoids and acellular pertussis vaccine, unspecified formulation Amarilys Bailey PT Work Phone: [facility] 01-09-2002 hepatitis A vaccine, unspecified formulation Amarilys Bailey PT Work Phone: [facility] 01-09-2002 hepatitis B vaccine, adult dosage Amarilys Bailey PT Work Phone: [facility] 01-09-2002 measles, mumps, rube lla, and varicella virus vaccine Amarilys Bailey PT Work Phone: [facility] 05-03-1993 diphtheria, tetanus toxoids and acellular pertussis vaccine, unspecified formulation Amarilys Bailey PT Work Phone: [facility] 05-03-1993 haemophilus influenz ae type b vaccine, HbOC conjugate Amarilys Bailey PT Work Phone: [facility] 05-03-1993 measles, mumps, rube lla, and varicella virus vaccine Amarilys Bailey PT Work Phone: [facility] 05-03-1993 poliovirus vaccine, inactivated Amarilys Bailey PT Work Phone: [facility] 1991 diphtheria, tetanus toxoids and acellular pertussis vaccine, unspecified formulation Amarilys Bailey PT Work Phone: [facility] 1991 haemophilus influenz ae type b vaccine, HbOC conjugate Amarilys Bailey PT Work Phone: [facility] 1991 poliovirus vaccine, inactivated Amarilys Bailey PT Work Phone: [facility] 1991 diphtheria, tetanus toxoids and acellular pertussis vaccine, unspecified formulation Amarilys Bailey PT Work Phone: [facility] 1991 haemophilus influenz ae type b vaccine, HbOC conjugate Amarilys Bailey PT Work Phone: [facility] 1991 poliovirus vaccine, inactivated Amarilys Bailey PT Work Phone: [facility] 1991 diphtheria, tetanus toxoids and acellular pertussis vaccine, unspecified formulation Amarilys Bailey PT Work Phone: [facility] 1991 haemophilus influenz ae type b vaccine, HbOC conjugate Amarilys Bailey PT Work Phone: [facility] 1991 poliovirus vaccine, inactivated Amarilys Bailey PT Work Phone: [facility] Payers Date Payer Category Payer Unknown [facility] [employer] [place] [employer] [id number] 2020-Present [phone] [address] [place] [address] PPO [id number] 2020 Unknown [facility] [employer] [place] [employer] [id number] 2020-Present [phone] [address] [place] [address] PPO [id number] 2020 Unknown [id number] 1991 Unknown [id number] 1991 Unknown [id number] Unknown [id number] Social History Date Type Detail Facility Start: 02-07-2018 Tobacco smoking stat [facility] Never smoked tobacco [facility] Start: 02-07-2018 Tobacco use and exposure Smoke less tobacco non-user [facility] Start: 1991 Sex Assigned At Not on file [facility] Start: 08-20-2021 End: 09-19-2021 Exposure to SARS-CoV-2 (event) Not sure [facility] Start: 07-01-2020 End: 04-14-2022 History of Social function [facility] Start: 07-01-2020 End: 04-14-2022 Tobacco use panel [facility] National Score (1-10 0), lower number is lower risk Not on file [facility] Clinical Notes 10-14-2021 to 06-04-2023 Addendum Note - Carolina Philip APRN.SUPERVISOR PRESSING DEPARTMENT - 06/04/2023 10:37 AM Carolina Shine APRN.SUPERVISOR PRESSING DEPARTMENT - 06/04/2023 10:18 AM Jessica Ryan APRN.[facility] - 01/06/2022 6:01 PM EDT Note Date & Type Note Facility 06-04-2023 Note HNO ID: [id number] Author: Carolina Philip APRN.SUPERVISOR PRESSING DEPARTMENT Service: ? Author Type: Nurse Practitioner Type: Progress Notes Filed: 06/04/2023 10:34 AM Note Text: Chief Complaint Patient presents with: Rash: X3 days HPI Teja Conroy is a 33 year old female who presents here today for Above Complaints.. Patient presents for rash to back. Patient reports rash started Sunday night and is painful to the touch. Patient reports she recently had covid and is currently 20 weeks . Past medical history, appointments, medications, allergies reviewed. Previous Medical History No past medical history on file. Previous Surgical History PAST SURGICAL HISTORY Procedure Laterality Date OTHER wisdom teeth extraction Family History FAMILY HISTORY Problem Relation Age of Onset Prostate Cancer Father other (testicular cancer) Father other (prediabetes) Father other (migraines) Sister other (atypical cervical cells) Sister Thyroid Brother other (acid reflux) Sister Patient Allergies ALLERGIES Allergen Reactions Seasonal Allergies Other: See Comments Current Medications Current Outpatient Medications on File Prior to Visit Medication Sig cetirizine HCl (ZYRTEC ORAL) Take by mouth. trimethoprim-polymyxin (POLYTRIM) 10,000 unit- 1 mg/mL ophthalmic solution Use 1 Drop in the right eye four times daily. (Patient not taking: Reported on 04/14/2022) CRANBERRY ORAL Take by mouth. (Patient not taking: Reported on 01/06/2022 ) famotidine (PEPCID ORAL) Take by mouth. omeprazole (PRILOSEC) 20 mg capsule Take 1 capsule by mouth daily before breakfast. 1/2 hr before meal. (Patient not taking: Reported on 03/19/2021 ) albuterol HFA (PROAIR HFA) 90 mcg/actuation inhaler Inhale 2 Puffs as instructed every 4 hours as needed. No current facility-administered medications on file prior to visit. Social History Social History Tobacco Use Smoking status: Never Smokeless tobacco: Never Review of Symptoms REVIEW OF SYSTEMS SEE HPI EXAM: BP 110/62 Pulse 88 Resp 14 Wt 76.2 kg (168 lb) LMP 12/10/2018 BMI 28.84 kg/m? General Appearance: Well appearing, alert, in no acute distress, well-hydrated, well nourished.. Skin: Positives: Rash: Raised blistery rash to left upper back, painful to touch. No drainage noted. Health Maintenance List Pneumococcal Vaccine(1 - PCV) Never done Hepatitis B Vaccine(3 of 3 - 3-dose series) due on 05/01/2002 Spirometry Never done Hepatitis C Screening Never done HIV Screening Never done Annual PCP Team Chronic Disease Visit due on 12/20/2019 Depression Assessment Never done Covid-19 Vaccine( season) due on 03/23/2023 Pap Testing due on 11/11/2024 HPV Testing due on 07/27/2027 DTaP,Tdap,Td Vaccine(8 - Td or Tdap) due on 03/15/2030 Influenza Vaccine Completed HPV Vaccine Aged Out ASSESSMENT/PLAN: 1. Herpes zoster with complication - ICD9: 053.8, ICD10: B02.8 -Discussed with Marilee Mcleod CNP at [facility] as patient is currently 20 weeks . - VALACYCLOVIR 1 GRAM TABLET Carolina Philip APRN.CNP [facility] 06-04-2023 Miscellaneous Notes Addended by: CAROLINA PHILIP on: 06/04/2023 10:37 AM Modules accepted: Orders documented in this encounter [facility] 06-04-2023 History of Presen t illness Narrative Chief Complaint Patient presents with: Rash: X3 days HPI Teja Conroy is a 33 year old female who presents here today for Above Complaints.. Patient presents for rash to back. Patient reports rash started day night and is painful to the touch. Patient reports she recently had covid and is currently 20 weeks . Past medical history, appointments, medications, allergies reviewed. Previous Medical History No past medical history on file. Previous Surgical History PAST SURGICAL HISTORY Procedure Laterality Date OTHER wisdom teeth extraction Family History FAMILY HISTORY Problem Relation Age of Onset Prostate Cancer Father other (testicular cancer) Father other (prediabetes) Father other (migraines) Sister other (atypical cervical cells) Sister Thyroid Brother other (acid reflux) Sister Patient Allergies ALLERGIES Allergen Reactions Seasonal Allergies Other: See Comments Current Medications Current Outpatient Medications on File Prior to Visit Medication Sig cetirizine HCl (ZYRTEC ORAL) Take by mouth. trimethoprim-polymyxin (POLYTRIM) 10,000 unit- 1 mg/mL ophthalmic solution Use 1 Drop in the right eye four times daily. (Patient not taking: Reported on 04/14/2022) CRANBERRY ORAL Take by mouth. (Patient not taking: Reported on 01/06/2022 ) famotidine (PEPCID ORAL) Take by mouth. omeprazole (PRILOSEC) 20 mg capsule Take 1 capsule by mouth daily before breakfast. 1/2 hr before meal. (Patient not taking: Reported on 03/19/2021 ) albuterol HFA (PROAIR HFA) 90 mcg/actuation inhaler Inhale 2 Puffs as instructed every 4 hours as needed. No current facility-administered medications on file prior to visit. Social History Social History Tobacco Use Smoking status: Never Smokeless tobacco: Never Review of Symptoms REVIEW OF SYSTEMS SEE HPI EXAM: BP 110/62 Pulse 88 Resp 14 Wt 76.2 kg (168 lb) LMP 12/10/2018 BMI 28.84 kg/m General Appearance: Well appearing, alert, in no acute distress, well-hydrated, well nourished.. Skin: Positives: Rash: Raised blistery rash to left upper back, painful to touch. No drainage noted. Health Maintenance List Pneumococcal Vaccine(1 - PCV) Never done Hepatitis B Vaccine(3 of 3 - 3-dose series) due on 05/01/2002 Spirometry Never done Hepatitis C Screening Never done HIV Screening Never done Annual PCP Team Chronic Disease Visit due on 12/20/2019 Depression Assessment Never done Covid-19 Vaccine(2022- season) due on 03/23/2023 Pap Testing due on 11/11/2024 HPV Testing due on 07/27/2027 DTaP,Tdap,Td Vaccine(8 - Td or Tdap) due on 03/15/2030 Influenza Vaccine Completed HPV Vaccine Aged Out ASSESSMENT/PLAN: 1. Herpes zoster with complication - ICD9: 053.8, ICD10: B02.8 -Discussed with Marilee Mcleod CNP at [facility] as patient is currently 20 weeks . - VALACYCLOVIR 1 GRAM TABLET Carolina Philip APRN.SUPERVISOR PRESSING DEPARTMENT documented in this encounter [facility] 01-06-2022 History of Presen t illness Narrative Subjective HPI HPI Teja Conroy is a 31 year old female who presents today for CC of cough, congestion. This started 1 week ago/not improving. Has tried otc medication for relief. Symptoms are worsened by nothing. Risk factors sick exposures at home. Right eye redness/drainage for 1 day. Denies vision change. .Patient presents with: Conjunctivitis: right eye started today Acute Visit: flu like symptoms x 1 week No past medical history on file. PAST SURGICAL HISTORY Procedure Laterality Date OTHER wisdom teeth extraction ALLERGIES Seasonal Allergies MEDICATIONS famotidine (PEPCID ORAL) Take by mouth. albuterol HFA (PROAIR HFA) 90 mcg/actuation inhaler Inhale 2 Puffs as instructed every 4 hours as needed. doxycycline monohydrate 100 mg tablet Take 1 tablet by mouth twice daily for 7 days. trimethoprim-polymyxin (POLYTRIM) 10,000 unit- 1 mg/mL ophthalmic solution Use 1 Drop in the right eye four times daily. CRANBERRY ORAL Take by mouth. omeprazole (PRILOSEC) 20 mg capsule Take 1 capsule by mouth daily before breakfast. 1/2 hr before meal. FAMILY HISTORY Problem Relation Age of Onset Prostate Cancer Father other (testicular cancer) Father other (prediabetes) Father other (migraines) Sister other (atypical cervical cells) Sister Thyroid Brother other (acid reflux) Sister Social History Tobacco Use Smoking status: Never Smoker Smokeless tobacco: Never Used Substance Use Topics Alcohol use: Not on file Drug use: Not on file Review of Systems Constitutional: Positive for malaise/fatigue. Negative for chills and fever. HENT: Positive for congestion and sore throat. Negative for ear discharge, ear pain and nosebleeds. Eyes: Positive for discharge and redness. Negative for blurred vision, double vision, photophobia and pain. Respiratory: Positive for cough. Negative for shortness of breath and wheezing. Cardiovascular: Negative for chest pain. Musculoskeletal: Negative for neck pain. Skin: Negative for itching and rash. Neurological: Negative for headaches. Objective Blood pressure 108/62, pulse 72, temperature 36.6 C (97.8 F), resp. rate 21, weight 67.5 kg (148 lb 12.8 oz), last menstrual period 12/10/2018, SpO2 99 %. Physical Exam Constitutional: General: She is not in acute distress. Appearance: She is not toxic-appearing or diaphoretic. HENT: Head: Normocephalic and atraumatic. Nose: Nose normal. No mucosal edema. Mouth/Throat: Pharynx: Uvula midline. No pharyngeal swelling, oropharyngeal exudate, posterior oropharyngeal erythema or uvula swelling. Eyes: General: No scleral icterus. Right eye: Discharge present. Left eye: No discharge. Conjunctiva/sclera: Right eye: Right conjunctiva is injected. Left eye: Left conjunctiva is not injected. Pupils: Pupils are equal, round, and reactive to light. Neck: Trachea: Trachea normal. Cardiovascular: Rate and Rhythm: Normal rate and regular rhythm. Heart sounds: Normal heart sounds. Pulmonary: Effort: Pulmonary effort is normal. Breath sounds: Normal breath sounds. Musculoskeletal: Cervical back: Normal range of motion and neck supple. Lymphadenopathy: Cervical: No cervical adenopathy. Right cervical: No superficial cervical adenopathy. Left cervical: No superficial cervical adenopathy. Comments: No cervical lymphadenopathy bilaterally Skin: Findings: No rash. Neurological: Mental Status: She is alert and oriented to person, place, and time. ASSESSMENT/PLAN: 1. Sinobronchitis - ICD9: 473.9, 490, ICD10: J32.9, J40 (primary diagnosis) Hold atb for 3-5 days, if s/s do not improve or worsen fill/take atb. - Supportive care with plenty of fluids, rest, and analgesia prn. - Follow up in 3-5 days if symptoms persist or worsen. - DOXYCYCLINE MONOHYDRATE 100 MG TABLET 2. Bacterial conjunctivitis - ICD9: 372.39, 041.9, ICD10: H10.9 Bacterial - see medication orders - course and contagiousness issues discussed, including hand washing. - Instructed to call if high fever, development of periorbital redness or swelling, eye pain, visual changes, concerns or if symptoms persist. - POLYMYXIN B SULFATE 10,000 UNIT-TRIMETHOPRIM 1 MG/ML EYE DROPS Agrees to plan Feliz Ryan APRN.SUPERVISOR PRESSING DEPARTMENT documented in this encounter [facility] 11-29-2021 History of Presen t illness Narrative Episode Visit Count: 5 Therapist That Will Oversee The Plan Of Care: Amarilys Bailey Start of Care Date: 10/14/21 Onset Date: 06/16/20 Patient Identified by Name and Date of : Yes REHABILITATION AND SPORTS THERAPY PHYSICAL THERAPY DISCONTINUANCE OF CARE PLAN OF CARE UPDATE: Assessment: Teja Conroy is discontinued from Physical Therapy services due to goal achievement and maximal benefit.. Patient was seen for 5 visits from Start of Care Date: 10/14/21 to 11/29/2021 and treatment included: Therapeutic exercise, Manual therapy and Self-prison management. Goals for Episode of Care: created on 10/14/21 Updated on: 11/29/2021 Incontinence: Patient to demonstrate independence with HEP-PROGRESSING Patient reports urgency is experienced less than baseline / initial Evaluation-MET Pelvic Pain: Patient reports painfree intercourse-MOSTLY MET Patient displays decreased muscle spasms in pelvic floor to allow for decreased pain levels-MET Patient displays improved muscle dynamics of pelvic floor including ability to lengthen-MET Patient Goals: improve pain and bladder function SUBJECTIVE: Patient Reason for Visit: Pt reports feeling a little sore after having sex but was able to stretch afterwards and felt a lot better. Pt reports ordering dilators, has not arrived yet. Pt reports fair compliance with HEP. Pt reports being pleased with progress, feels comfortable continuing on her own at home. Pain: Pain Pain Level: 0 Post Treatment Pain Post Treatment Pain Level: 0 PROMIS Scales T-scores: mean of general population = 50. 5 points is clinically meaningfully difference Percentiles provide an indication of how the patient's score ranks in relation to the general population. Higher percentile rankings indicate better function/quality of life. 50th percentile is the average of the general population and indicates half of respondents had a worse score. T-scores: mean of general population = 50. 5 points is clinically meaningfully difference Percentiles provide an indication of how the patient's score ranks in relation to the general population. Higher percentile rankings indicate better function/quality of life. 50th percentile is the average of the general population and indicates half of respondents had a worse score. OBJECTIVE MEASURES WITH LEVEL OF FUNCTION: Pelvic Floor Pain with penetration: Pain after intercourse (min) Urgency: No Pelvic Floor Muscle Assessment Consent for pelvic assessment/testing and treatment: Patient was educated regarding pelvic floor physical therapy assessment/treatment which may include pelvic floor and girdle muscle assessment externally or internally (vaginal or rectal approach).;Patient verbalized consent for the above treatment approaches today. Patient understands they have control of the treatment and an opportunity to stop treatment at any time. Range of Motion: Normal Ability to Lengthen pelvic floor: Yes Pelvic Floor Manual Assessment External Pelvic Region Tenderness/ Hyperactivity - Trunk: Lower abdominals Lower abdominals: Bilateral (1/) External Pelvic Region Tenderness/ Hyperactivity - Lower Extremity: Adductor Adductor: Bilateral (/) Pelvic Floor Tenderness/Hyperactivity: Tested Vaginally in Tested Vaginally in : Supine/hooklying (No tightness/tenderness noted.) Tissue Restriction/Tenderness Scale: 1= mild, 2= moderate, 3= severe TREATMENT: Manual Therapy: 1: Reassessment 2: Gentle stretching to B pelvic floor, supine 3: MFR to B lower abdominals, supine 4: MFR to B adductors, supine 5: Discussed discharge planning Skilled Intervention: Manual skills to improve joint mobility, ROM, and decrease pain. Utilized anatomy knowledge of the therapist, and assessment of patient's response to intervention. Billing Manual TherapyTreatment Minutes: 40 Total Treatment Time Minutes (timed/untimed): 40 Amarilys Bailey PT documented in this encounter [facility] 11-11-2021 History of Presen t illness Narrative Episode Visit Count: 4 Therapist That Will Oversee The Plan Of Care: Amarilys Bailey Start of Care Date: 10/14/21 Onset Date: 06/16/20 Patient Identified by Name and Date of : Yes REHABILITATION AND SPORTS THERAPY PHYSICAL THERAPY TREATMENT NOTE ASSESSMENT: Teja Conroy tolerated the session with no issues. She demonstrated slight improvements in pelvic floor muscle tightness/tenderness compared to previous session. The patient will continue to benefit from ongoing skilled physical therapy to progress toward set goals. PLAN FOR NEXT VISIT: reassessment SUBJECTIVE: Patient Reason for Visit: Pt reports intermittent pain, UTI symptoms. Pt reports feeling better overall but still has episodes of pain. Pt reports not looking into dilators yet. Pt reports fair compliance with HEP. Pain: Pain Pain Level: 1 Pain Location: Vaginal Description: Dull Frequency: Intermittent Post Treatment Pain Post Treatment Pain Level: No Change OBJECTIVE MEASURES WITH LEVEL OF FUNCTION: Pelvic Floor Pain with penetration: Superficial;Pain after intercourse Urgency: No Pelvic Floor Muscle Assessment Consent for pelvic assessment/testing and treatment: Patient was educated regarding pelvic floor physical therapy assessment/treatment which may include pelvic floor and girdle muscle assessment externally or internally (vaginal or rectal approach).;Patient verbalized consent for the above treatment approaches today. Patient understands they have control of the treatment and an opportunity to stop treatment at any time. Pelvic Floor Manual Assessment External Pelvic Region Tenderness/ Hyperactivity - Trunk: Lower abdominals Lower abdominals: Bilateral (1/1) External Pelvic Region Tenderness/ Hyperactivity - Lower Extremity: Adductor Adductor: Bilateral (2/2) Pelvic Floor Tenderness/Hyperactivity: Tested Vaginally in Tested Vaginally in : Supine/hooklying Deep transverse perineal: Left (1/1) Iliococcygeus: Left (1/1) Tissue Restriction/Tenderness Scale: 1= mild, 2= moderate, 3= severe TREATMENT: Manual Therapy: 1: Gentle stretching to B pelvic floor, supine 2: MFR to B lower abdominals, supine 3: MFR to B adductors, supine Skilled Intervention: Manual skills to improve joint mobility, ROM, and decrease pain. Utilized anatomy knowledge of the therapist, and assessment of patient's response to intervention. Billing Manual TherapyTreatment Minutes: 41 Total Treatment Time Minutes (timed/untimed): 41 Amarilys Bailey PT documented in this encounter [facility] 10-28-2021 History of Presen t illness Narrative Episode Visit Count: 3 Therapist That Will Oversee The Plan Of Care: Amarilys Bailey Start of Care Date: 10/14/21 Onset Date: 06/16/20 Patient Identified by Name and Date of : Yes REHABILITATION AND SPORTS THERAPY PHYSICAL THERAPY TREATMENT NOTE ASSESSMENT: Teja Conroy tolerated the session with no issues. She demonstrated improvements in urinary urgency, continued pelvic pain after intercourse per patient report. The patient will continue to benefit from ongoing skilled physical therapy to progress toward set goals. PLAN FOR NEXT VISIT: continue manual work SUBJECTIVE: Patient Reason for Visit: Pt reports UTI symptoms last weekend, which subsided after a couple days. Pt reports pelvic pain improved as the week progressed. Pt reports fair-good compliance with HEP. Pt reports no urinary urgency. Pt reports continued pain after sex, feels dry and raw. Pt reports lubrication helps but does not always use it. Pain: Pain Pain Level: 2 Pain Location: Vaginal Description: Dull Frequency: Intermittent Post Treatment Pain Post Treatment Pain Level: No Change OBJECTIVE MEASURES WITH LEVEL OF FUNCTION: Pelvic Floor Pain with penetration: Pain after intercourse Urgency: No Pelvic Floor Muscle Assessment Consent for pelvic assessment/testing and treatment: Patient was educated regarding pelvic floor physical therapy assessment/treatment which may include pelvic floor and girdle muscle assessment externally or internally (vaginal or rectal approach).;Patient verbalized consent for the above treatment approaches today. Patient understands they have control of the treatment and an opportunity to stop treatment at any time. Pelvic Floor Manual Assessment External Pelvic Region Tenderness/ Hyperactivity - Trunk: Lower abdominals Lower abdominals: Bilateral (1/1) External Pelvic Region Tenderness/ Hyperactivity - Lower Extremity: Adductor Adductor: Bilateral (2/2, L>R) Pelvic Floor Tenderness/Hyperactivity: Tested Vaginally in Tested Vaginally in : Supine/hooklying Superficial transverse perineal: Left (1/1) Deep transverse perineal: Left (1/1) Iliococcygeus: Left (1/1) Pubococcygeus: Left (1/1) Tissue Restriction/Tenderness Scale: 1= mild, 2= moderate, 3= severe TREATMENT: Therapeutic Exercise: 1: *standing sidebend stretch, [id number] each 2: *deep squat stretch, 5q22ast 3: *BKTC stretch, 2p25owm Skilled Intervention: Patient was educated in proper exercise technique and purpose for exercises. Reviewed and educated patient on additions/changes for home exercise program as above (*). Skilled judgment was provided in selection of appropriate interventions. Provided written instruction for home exercise program to facilitate proper performance and compliance. Manual Therapy: 1: Gentle stretching to B pelvic floor, supine 2: MFR to B lower abdominals, supine 3: MFR to B adductors, supine Skilled Intervention: Manual skills to improve joint mobility, ROM, and decrease pain. Utilized anatomy knowledge of the therapist, and assessment of patient's response to intervention. Billing Therapeutic Exercise Treatment Minutes: 12 Manual TherapyTreatment Minutes: 32 Total Treatment Time Minutes (timed and untimed codes) : 44 Amarilys Bailey PT documented in this encounter [facility] 10-21-2021 History of Presen t illness Narrative Episode Visit Count: 2 Therapist That Will Oversee The Plan Of Care: Amarilys Bailey Start of Care Date: 10/14/21 Onset Date: 06/16/20 Patient Identified by Name and Date of : Yes REHABILITATION AND SPORTS THERAPY PHYSICAL THERAPY TREATMENT NOTE ASSESSMENT: Teja Conroy tolerated the session with no issues. She demonstrated improvements in awareness of muscle tension, improvement in pain during intercourse but continued pain after intercourse. The patient will continue to benefit from ongoing skilled physical therapy to progress toward set goals. PLAN FOR NEXT VISIT: progress stretches, internal/external manual work SUBJECTIVE: Patient Reason for Visit: Pt reports continued pelvic pain but notices slight improvement as the week progressed. Pt reports being more aware of muscle tension. Pt reports good compliance with HEP. Pt reports no pain during intercourse since last session but noticed pain afterwards. Pain: Pain Pain Level: 0 Post Treatment Pain Post Treatment Pain Level: 0 OBJECTIVE MEASURES WITH LEVEL OF FUNCTION: Pelvic Floor Pain with penetration: Pain after intercourse Pelvic Floor Muscle Assessment Consent for pelvic assessment/testing and treatment: Patient verbalized consent for the above treatment approaches today. Patient understands they have control of the treatment and an opportunity to stop treatment at any time.;Patient was educated regarding pelvic floor physical therapy assessment/treatment which may include pelvic floor and girdle muscle assessment externally or internally (vaginal or rectal approach). Pelvic Floor Manual Assessment External Pelvic Region Tenderness/ Hyperactivity - Trunk: Lower abdominals Lower abdominals: Bilateral (1/1) External Pelvic Region Tenderness/ Hyperactivity - Lower Extremity: Adductor Adductor: Bilateral (2/2) Tissue Restriction/Tenderness Scale: 1= mild, 2= moderate, 3= severe TREATMENT: Therapeutic Exercise: 1: *piriformis stretch, [id number] each 2: *supine hip flexor stretch, 0h22usi each 3: *supine 90/90 hamstring stretch, 2q03imr each Skilled Intervention: Patient was educated in proper exercise technique and purpose for exercises. Reviewed and educated patient on additions/changes for home exercise program as above (*). Skilled judgment was provided in selection of appropriate interventions. Provided written instruction for home exercise program to facilitate proper performance and compliance. Manual Therapy: 1: MFR to B lower abdominals, supine 2: MFR to B adductors, supine Skilled Intervention: Manual skills to improve joint mobility, ROM, and decrease pain. Utilized anatomy knowledge of the therapist, and assessment of patient's response to intervention. Self-Senior Living Management: 1: Reviewed purpose and function of vaginal dilators for internal self-STM Skilled Intervention: Skilled judgment in the selection of proper modification for activity of daily living/home management based on clinical presentation, deficits, and needs. Billing Therapeutic Exercise Treatment Minutes: 11 Manual TherapyTreatment Minutes: 20 Self-Care/Home Management Treatment Minutes: 9 Total Treatment Time Minutes (timed and untimed codes) : 40 Amarilys Bailey PT documented in this encounter [facility] 10-14-2021 History of Presen t illness Narrative Episode Visit Count: 1 Therapist That Will Oversee The Plan Of Care: Amarilys Bailey Start of Care Date: 10/14/21 Onset Date: 06/16/20 Patient Identified by Name and Date of : Yes REHABILITATION AND SPORTS THERAPY PHYSICAL THERAPY EVALUATION PLAN OF CARE: Assessment: Teja Conroy presents with chief complaint of pelvic pain that interferes with altered sexual function;compromised bladder function . She presents with impairments in decreased pelvic floor ROM; pelvic floor muscle tightness/tenderness; impaired bladder and sexual function. Prognosis for therapy is Good due to: current objective clinical presentation . She will benefit from skilled therapy services to meet the goals established for this plan of care as noted below. Goals for Episode of Care: created on 10/14/21 through 01/12/22 Incontinence: Patient to demonstrate independence with HEP Patient reports urgency is experienced less than baseline / initial evaluation Pelvic Pain: Patient reports painfree intercourse Patient displays decreased muscle spasms in pelvic floor to allow for decreased pain levels Patient displays improved muscle dynamics of pelvic floor including ability to lengthen Patient Goals: improve pain and bladder function Planned Interventions, Frequency, and Duration: Current Frequency: 1x/week Duration: 4 weeks (reassess at 4 weeks and progress as indicated) Total Number of Visits Planned: 4 Planned Treatment Interventions: Therapeutic exercise (13336);Manual therapy (11835);Self-prison management ([id number]);Patient/Family/Caregiver Education PLAN FOR NEXT VISIT: discuss dilators, progress stretches, assess external connective tissue Patient demonstrates good understanding of plan of care and treatment. The above goals and plan of care were discussed and agreed upon by patient/family. SUBJECTIVE: Pt reports having a baby 16 months ago, started having frequent UTI's before that. Pt reports this improved once off control but now starting to return, has frequent UTI symptoms, such as pelvic pain with sex, urination. 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 PAST SURGICAL HISTORY Procedure Laterality Date OTHER wisdom teeth extraction Previous Treatment: None Falls Interview: No positive findings with falls interview Aquatic Screen: No Pain: Pain Pain Level: 3 Pain Location: Vaginal Description: Dull Frequency: Intermittent Post Treatment Pain Post Treatment Pain Level: No Change PROMIS Scales T-scores: mean of general population = 50. 5 points is clinically meaningfully difference Percentiles provide an indication of how the patient's score ranks in relation to the general population. Higher percentile rankings indicate better function/quality of life. 50th percentile is the average of the general population and indicates half of respondents had a worse score. T-scores: mean of general population = 50. 5 points is clinically meaningfully difference Percentiles provide an indication of how the patient's score ranks in relation to the general population. Higher percentile rankings indicate better function/quality of life. 50th percentile is the average of the general population and indicates half of respondents had a worse score. OBJECTIVE MEASURES WITH LEVEL OF FUNCTION: Pelvic Floor Control Method: contraceptive implant Pregnancies: 1 Births: 1 Vaginal Delivery: Standard Currently ?: Yes Pain with penetration: Deep and superficial;Pain during intercourse;Pain after intercourse;Pain with internal medical exam Urinary/Bowel History : Urinary History;Bowel History Difficulty starting stream: No Incomplete emptying: No Stress Incontinence: No Urgency: Sometimes Frequency of Urgency Episodes: a few times a week Frequency of Leaks Secondary to Urge: 0 Nocturia (times per night): 1 Daytime Frequency (hours): 2-3 Fluid Intake: Water;Coffee;Milk;Pop/Diet Pop (8 oz measurements) Water : 6 Coffee: 1.5 Pop/Diet Pop : 1.5 (Sprite) Milk : 1 Difficulty evacuating / Excessive Straining: No Incomplete emptying: No Bowel Movement Frequency: 1x/day Fecal incontinence: No Pelvic Floor Muscle Assessment Consent for pelvic assessment/testing and treatment: Patient verbalized consent for the above treatment approaches today. Patient understands they have control of the treatment and an opportunity to stop treatment at any time.;Patient was educated regarding pelvic floor physical therapy assessment/treatment which may include pelvic floor and girdle muscle assessment externally or internally (vaginal or rectal approach). Pelvic Floor Muscle Assessment: PERFECT;Muscle Dynamics Power: 3 Endurance: 10 Fast Reps: 10 Contracton Pressure: Moderate squeeze, felt all the way around finger surface Duration of Contraction: >3 seconds Recruitment of pelvic floor muscles: Coordinated Range of Motion: Decreased Ability to Lengthen pelvic floor: Difficulty at first, but improves with cueing and practice Diaphragmatic Breathing : Good Pelvic Floor Manual Assessment Pelvic Floor Tenderness/Hyperactivity: Tested Vaginally in Tested Vaginally in : Supine/hooklying Superficial transverse perineal: Bilateral (07/23) Deep transverse perineal: Bilateral (07/23) Iliococcygeus: Bilateral (07/23, L>R) Obturator internus: Bilateral (07/23) Pubococcygeus: Bilateral (07/23) LE AROM R LE AROM: WFL L LE AROM: WFL LE Flexibility Flexibility: Hamstring Flexibility;Hip Adductor;Hip Internal Rotation Flexibility;Hip External Rotation Flexibility R Hamstring Flexibility: WNL L Hamstring Flexibility: WNL R Adductor Flexibility: WNL L Adductor Flexibility: WNL R Hip Internal Rotation Flexibility: WNL L Hip Internal Rotation Flexibility: WNL R Hip External Rotation Flexibility: WNL L Hip External Rotation Flexibility: WNL LE Strength Trunk Strength: Lower Abdominals: 4/5 R LE Strength: 5/5 L LE Strength: 5/5 Tissue Restriction/Tenderness Scale: 1= mild, 2= moderate, 3= severe Education: Education Learning Preferences: Demonstration;Explanation;Perfor martinez;Printed Materials Barriers: None Learning/educational needs: Home exercise program;Plan of Care Education Provided: Yes, see treatment interventions for education provided Education Provided To: Patient Education Mode/Type: Demonstration;Explanation/Discus lore;Literature/Printed Materials;Performance Response to Education/Teach Back: States/Identifies;Return Demonstration TREATMENT: PT Treatment Interventions: Therapeutic Exercise;Self-Senior Living Management Evaluation Therapeutic Exercise: 1: *diaphragmatic breathing 2: *supine adductor stretch, 1h47izh 3: *PF lengthening, 2x10 Skilled Intervention: Patient was educated in proper exercise technique and purpose for exercises. Reviewed and educated patient on additions/changes for home exercise program as above (*). Skilled judgment was provided in selection of appropriate interventions. Provided written instruction for home exercise program to facilitate proper performance and compliance. Self-Senior Living Management: 1: Reviewed pelvic floor anatomy and function with 3D pelvic model 2: Reviewed typical vs dysfunctional bladder health 3: Reviewed bladder irritants, importance of water intake 4: Reviewed urinary urgency suppression techniques 5: Reviewed impact of stress on muscle tension, muscle tension on pain: *body scanning Skilled Intervention: Skilled judgment in the selection of proper modification for activity of daily living/home management based on clinical presentation, deficits, and needs. Educated the patient regarding recommendations and provided written instruction to facilitate compliance. Billing * Evaluation Low Complexity: 1 Unit Therapeutic Exercise Treatment Minutes: 10 Self-Care/Home Management Treatment Minutes: 18 Total Treatment Time Minutes (timed and untimed codes) : 54 Amarilys Bailey PT documented in this encounter [facility] documented in this encounter [facility] note* Diagnosis Pelvic pain in female- Primary Unspecified symptom associated with female genital organs Urethral spasm Other specified disorders of urethra [facility] Diagnosis Pelvic pain in female- Primary Unspecified symptom associated with female genital organs Urethral spasm Other specified disorders of urethra documented in this encounter [facility] note* Diagnosis Pelvic pain in female- Primary Unspecified symptom associated with female genital organs Urethral spasm Other specified disorders of urethra documented in this encounter [facility] note* Diagnosis Pelvic pain in female- Primary Unspecified symptom associated with female genital organs Urethral spasm Other specified disorders of urethra documented in this encounter [facility] note* Diagnosis Sinobronchitis- Primary Unspecified sinusitis (chronic) Bacterial conjunctivitis Other [facility]ivitis [facility] Herpes zoster with complication- Primary Herpes zoster with unspecified complication Mild intermittent extrinsic asthma without complication documented in this encounter [facility] Summary Purpose Family History No Family History Records FoundNo Family History Records Found Advance Directives No Advanced Directives Records FoundNo Advanced Directives Records Found Additional Source Comments Source Comments (unrecognize d section and content) In the event this informatio n is protected by the Federal Confidentiality of Alcohol and Drug Abuse Patient Records regulations: The Federal rules restrict any use of the information to criminally investigate or prosecute any alcohol or drug abuse patient.[facility] event this information is protected by the Federal Confidentiality of Alcohol and Drug Abuse Patient Records regulations: The Federal rules restrict any use of the information to criminally investigate or prosecute any alcohol or drug abuse patient.[facility] the event this information is protected by the Federal Confidentiality of Alcohol and Drug Abuse Patient Records regulations: The Federal rules restrict any use of the information to criminally investigate or prosecute any alcohol or drug abuse patient.[facility] the event this information is protected by the Federal Confidentiality of Alcohol and Drug Abuse Patient Records regulations: The Federal rules restrict any use of the information to criminally investigate or prosecute any alcohol or drug abuse patient.[facility] the event this information is protected by the Federal Confidentiality of Alcohol and Drug Abuse Patient Records regulations: The Federal rules restrict any use of the information to criminally investigate or prosecute any alcohol or drug abuse patient.[facility] the event this information is protected by the Federal Confidentiality of Alcohol and Drug Abuse Patient Records regulations: The Federal rules restrict any use of the information to criminally investigate or prosecute any alcohol or drug abuse patient.[facility] the event this information is protected by the Federal Confidentiality of Alcohol and Drug Abuse Patient Records regulations: The Federal rules restrict any use of the information to criminally investigate or prosecute any alcohol or drug abuse patient.[facility] Reason for Visit (unrecogniz ed section and content) Specialty Diagnoses / Procedures Referred By Contcandy t Referred To Contact Physical Therapy / PHYSICAL THERAPY Diagnoses Pelvic Floor Procedures NEW RS PT ORTH Barbi Maravilla [address] [facility] [address] [place] [address] Amarilys Bailey, PT [address] [place] [address] Referral ID Status Reason Start Date Expiration Date V isits Requested Visits Authorized [id number] Authorized 07/23/2021 07/22/2022 45 45 Reason Comments Physical Therapy Reason Comments PT Eval Reason Comments Conjunctivitis right eye started to day Acute Visit flu like symptoms x 1 week Reason Comments Rash X3 days Care Teams (unrecognized sec tion and content) Manager Garage Relationship Specialty Start Date End Date Liyah Sanchez, PHOTOGRAMMETRIC TECHNICIAN.SUPERVISOR PRESSING DEPARTMENT [address] [place] [address] PCP - General Family Practice 07/01/18 Manager Garage Relationship Specialty Start Date End Date Liyah Sanchez, PHOTOGRAMMETRIC TECHNICIAN.SUPERVISOR PRESSING DEPARTMENT [address] [place] [address] PCP - General Family Practice 07/01/18 Manager Garage Relationship Specialty Start Date End Date Liyah Sanchez, PHOTOGRAMMETRIC TECHNICIAN.SUPERVISOR PRESSING DEPARTMENT [address] [place] [address] PCP - General Family Practice 07/01/18 Manager Garage Relationship Specialty Start Date End Date Liyah Sanchez, PHOTOGRAMMETRIC TECHNICIAN.SUPERVISOR PRESSING DEPARTMENT [address] [place] [address] PCP - General Family Practice 07/01/18 Manager Garage Relationship Specialty Start Date End Date Liyah Sanchez, PHOTOGRAMMETRIC TECHNICIAN.SUPERVISOR PRESSING DEPARTMENT [address] [place] [address] PCP - General Family Practice 07/01/18 Manager Garage Relationship Specialty Start Date End Date Liyah Sanchez, PHOTOGRAMMETRIC TECHNICIAN.SUPERVISOR PRESSING DEPARTMENT [address] [place] [id number] PCP - General Family Medicine 07/01/18 INFORMATION SOURCE (unrecogn ized section and content) DATE CREATED AUTHOR AUTHOR'S THUY ABELARDOSABRINA 07/29/2023 [facility] FOR RECORDS PERTAINING TO PATIENTS WHO ARE OR HAVE BEEN ENROLLED IN A CHEMICAL DEPENDENCY/SUBSTANCEABUSE PROGRAM, SOME INFORMATION MAY BE OMITTED. This clinical summary was aggregated from multiple sources. Caution should be exercised in using it in the provision of clinical care. This summary normalizes information from multiple sources, and as a consequence, information in this document may materially change the coding, format and clinical context of patient data. In addition, data may be omitted in some cases. CLINICAL DECISIONS SHOULD BE BASED ON THE PRIMARY CLINICAL RECORDS. [facility] [email or web address] provides no warranty or guarantee of the accuracy or completeness of information in this document.
[2023-08-01 11:10] LABS: Absolute Lymphocyte Count 2.05 X10^3/uL (0.83-4.51); Absolute Neutrophil Count 7.6 X10^3/uL (2.0-7.7); Basophil# 0.04 X10^3/uL; Basophil% 0.4 % (0-1); Eosinophils% 0.9 % (0-5); Hematocrit 33.3 % (37-47); Hemoglobin 11.1 g/dL (12.0-15.0); Lymphocyte # 2.05 X10^3/ul (0.83-4.51); Lymphocyte % 18.6 % (19-41); Mean Corp Hgb Conc 33.3 g/dL (32-36); Mean Corpuscular Hgb 32.8 pg (27.0-32.0); Mean Corpuscular Volume 98.5 fL (81-99); Monocyte# 0.87 X10^3/uL; Monocyte% 7.9 % (0-10); NRBC Flagged by Analyzer 0 % (0-5); Neutrophil # 7.64 X10^3/uL (2.7-7.7); Neutrophil % 69.4 % (47-70); Platelet Count 247 K/mm3 (150-450); RBC Distribution Width CV 13.1 % (11.6-14.6); RBC Distribution Width SD 46.8 fl (35.1-43.9); Red Blood Count 3.38 M/mm3 (4.2-5.4)
[2023-08-01 12:01] LABS: Glucose Challenge Gest 1H 50g 109 mg/dL (70-140)
[2023-08-01 12:45] LABS: HIV - WCH Non-Reactive (Nonreactive); Syphilis Antibodies Non-reactive
== END | disposition home or self-care (01) ==
LOC: LAB 09:58
PROVIDERS: PCP Physician Assistant; Referring Provider Obstetrics & Gynecology; Visit Provider Obstetrics & Gynecology
DX: O09.90 Supervision of high risk pregnancy, unspecified, unspecified trimester (principal); Z3A.00 Weeks of gestation of pregnancy not specified
CPT/HCPCS: 36415; 82950; 85025; 86703; 86780

== ENCOUNTER → 2023-09-24 | Outpatient (CLI) | payer OTHER, SELFPAY | END | disposition home or self-care (01) | LOC: LABSPEC 16:52 | PROVIDERS: PCP Physician Assistant; Referring Provider Obstetrics & Gynecology; Visit Provider Obstetrics & Gynecology | DX: O09.90 Supervision of high risk pregnancy, unspecified, unspecified trimester (principal); Z3A.00 Weeks of gestation of pregnancy not specified | CPT/HCPCS: 87081 ==

== ENCOUNTER → 2023-10-02 | Outpatient (CLI) | payer OTHER, SELFPAY ==
[2023-10-02 15:48] LABS: Absolute Lymphocyte Count 2.51 X10^3/uL (0.83-4.51); Absolute Neutrophil Count 9.4 X10^3/uL (2.0-7.7); Basophil# 0.11 X10^3/uL; Basophil% 0.8 % (0-1); Eosinophil# 0.06 X10^3/uL; Eosinophils% 0.4 % (0-5); Hematocrit 35.1 % (37-47); Hemoglobin 11.8 g/dL (12.0-15.0); Lymphocyte # 2.51 X10^3/ul (0.83-4.51); Lymphocyte % 18.2 % (19-41); Mean Corp Hgb Conc 33.6 g/dL (32-36); Mean Corpuscular Hgb 32.6 pg (27.0-32.0); Mean Platelet Vol. 10.4 fl (6.2-12.0); Monocyte# 1.23 X10^3/uL; Monocyte% 8.9 % (0-10); NRBC Flagged by Analyzer 0 % (0-5); Neutrophil % 68.2 % (47-70); Platelet Count 257 K/mm3 (150-450); RBC Distribution Width CV 12.7 % (11.6-14.6); RBC Distribution Width SD 44.7 fl (35.1-43.9); Red Blood Count 3.62 M/mm3 (4.2-5.4); White Blood Count 13.8 K/mm3 (4.4-11.0)
[2023-10-02 16:22] LABS: ALB/GLOB Ratio 0.7 RATIO (0.9-2.4); AST(SGOT) 24 U/L (15-37); Alanine Aminotransfer ALT/SGPT 26 U/L (13-56); Albumin, Serum 2.6 g/dL (3.2-5.0); Alkaline Phosphatase 118 U/L (45-117); Anion Gap 8 (5-15); BUN 8 mg/dL (7-18); BUN/Creat Ratio 11.3 RATIO (10-20); Calcium,Total 8.7 mg/dL (8.5-10.1); Chloride 108 mmol/L (98-107); Creatinine, Serum 0.71 mg/dL (0.55-1.02); EST Glomerular Filtration Rate 102 mL/min (>60); Est Glom Filt Rate - Afr Amer 123 mL/min (>60); Globulin 3.8 g/dL (2.2-4.2); Glucose 133 mg/dL (74-106); Potassium 3.5 mmol/L (3.5-5.1); Protein, Total 6.4 g/dL (6.4-8.2); Sodium Level 138 mmol/L (136-145); Uric Acid 4.1 mg/dL (2.6-6.0)
[2023-10-02 16:39] LABS: Protein, Urine (Random) < 6.0 mg/dL (<11.9)
--- OUTSIDE RECORDS SUMMARY | 2023-10-03 01:59 | XMS RPT_ITS | CCD ---
Author Name Unknown Address [address] [place] [address] Organization [facility] Care Team Providers Care Oil Developer Name Role Phone Laura HAZARDOUS MATERIAL TECHNICIAN.Liyah HUMPHREY Primary Care Provider CAROLINA PHILIP Attending Unavailable LIYAH SANCHEZ Primary Care Unavailable ARASELI VANG Primary Care Unavailable BEVERLEY HATFIELD Attending Unavailable ANAT WELLER Referring UnavailARASELI Pacheco Primary Care Unavailable BEVERLEY HATFIELD Attending Unavailable CELIA SAENZ Referring Unavailab ARASELI Gomez Primary Care Unavailable YANETH LONGORIA Attending Unavailable CELIA SAENZ Referring UnavailARASELI Johnson Primary Care Unavailable AZAR BRITT Attending Unavailable ANAT WELLER Referring Sandra hernandez Allergies Allergy Classification Reported Allergen(s) Allergy Type Date of Onset Reaction(s) Facility (8 sources) Seasonal allergy; Translations: [SEASONAL ALLERGIES] Allergy to substance 9 Other: See Comments [facility] Medications Current Medications Medication Drug Class(es) [...] Drug Class(es) Dates Sig (Normalized) Sig (Original) [id number] 200 actuat albuterol 0.09 mg/actuat metered dose [...] Date Time Vital Sign Value Performing Clinician Faci lity 06-04-2023 10:16-0500 Body weight 76.2 kg Carolina Philip APRN.CNP Work Phone: [facility] 06-04-2023 10:16-0500 Diastolic blood pressure 62 mm[Hg] Carolina Philip APRN.CNP Work Phone: [facility] 06-04-2023 10:16-0500 Heart rate 88 /min Carolina Philip APRN.CNP Work Phone: [facility] 06-04-2023 10:16-0500 Respiratory rate 14 /min Carolina Philip HAZARDOUS MATERIAL TECHNICIAN.GIS WEB DEVELOPER Work Phone: [facility] 06-04-2023 10:16-0500 Systolic blood pressure 110 mm[Hg] Carolina Philip HAZARDOUS MATERIAL TECHNICIAN.GIS WEB DEVELOPER Work Phone: [facility] 01-06-2022 16:30-0400 Body temperature 97.81 [degF] Feliz Ryan HAZARDOUS MATERIAL TECHNICIAN.GIS WEB DEVELOPER Work Phone: [facility] 01-06-2022 16:30-0400 Body weight 67.5 kg Feliz Ryan HAZARDOUS MATERIAL TECHNICIAN.GIS WEB DEVELOPER Work Phone: [facility] 01-06-2022 16:30-0400 Diastolic blood pressure 62 mm[Hg] Feliz Ryan HAZARDOUS MATERIAL TECHNICIAN.GIS WEB DEVELOPER Work Phone: [facility] 01-06-2022 16:30-0400 Heart rate 72 /min Feliz Ryan HAZARDOUS MATERIAL TECHNICIAN.GIS WEB DEVELOPER Work Phone: [facility] 01-06-2022 16:30-0400 Respiratory rate 21 /min Feliz Ryan HAZARDOUS MATERIAL TECHNICIAN.GIS WEB DEVELOPER Work Phone: [facility] 01-06-2022 16:30-0400 SaO2% (BldA) [Mass fraction] 99 % Feliz Ryan HAZARDOUS MATERIAL TECHNICIAN.GIS WEB DEVELOPER Work Phone: [facility] 01-06-2022 16:30-0400 Systolic blood pressure 108 mm[Hg] Feliz Ryan HAZARDOUS MATERIAL TECHNICIAN.GIS WEB DEVELOPER Work Phone: [facility] Encounters Encounter Date Encounter Type Care Provider Facility Start: 09-13-2023 End: 09-13-2023 ambulatory ARASELI Miner [facility] Start: 08-16-2023 End: 08-16-2023 ambulatory ARASELI Miner [facility] Start: 07-26-2023 End: 07-26-2023 ambulatory ARASELI Miner [facility] Start: 06-04-2023 End: 06-05-2023 ambulatory CAROLINA PHILIP Facility:[facility] Start: 06-04-2023 End: 06-04-2023 Patient encounter procedure Carolina Cedrick HOOD.GIS WEB DEVELOPER Work Phone: [facility] Plan of Treatment Date Care Activity Detail Author Start: 03-15-2030 Urine microalbumin profile DTaP,Tdap,Td Vaccine (8 - Td or Tdap) [facility] Start: 07-27-2027 HPV Testing HPV Testing [facility] Start: 11-11-2024 PAP TESTING PAP TESTING [facility] Start: 08-19-2024 Urine microalbumin profile DTAP,TDAP,TD (7 - Td or Tdap) [facility] Start: 06-04-2024 Annual PCP Team Pigment Grinder saman Disease Visit Annual PCP Team Chronic Disease Visit [facility] Start: 03-23-2023 Covid-19 Vaccine () Covid-19 Vaccine ( season) [facility] Start: 07-23-2022 Depression Assessment Depression Ass essment [facility] Start: 03-23-2022 Influenza vaccination INFLUENZA (Sea son Ended) [facility] Start: 03-23-2021 Influenza vaccination INFLUENZA (#1) [facility] Start: 2021 HPV TESTING HPV TESTING [facility] Start: 12-20-2019 ANNUAL PCP TEAM APPRENTICE ELECTRICIAN SAMAN DISEASE VISIT ANNUAL PCP TEAM CHRONIC DISEASE VISIT [facility] Start: 2009 HEPATITIS C SCREENING HEPATITIS C SC REENING [facility] Start: 2009 HIV SCREENING HIV SCREENING [facility] Start: 2009 SPIROMETRY SPIROMETRY [facility] Start: 2003 Adult depression screening assessment DEPRESSION SCREENING [facility] Start: 05-01-2002 Hepatitis B Vaccine (3 of 3 - 3-dose series) Hepatitis B Vaccine (3 of 3 - 3-dose series) [facility] Start: 1997 PNEUMOCOCCAL (1 - PCV) PNEUMOCOCCAL (1 - PCV) [facility] Start: 1997 Pneumococcal vaccination Pneum ococcal Vaccine (1 - PCV) [facility] Immunizations Immunization Date Immunization Notes Care Provider Romero gregg 05-31-2018 influenza, injectabl e, quadrivalent, contains preservative Amarilys Bailey PT Work Phone: [facility] 08-19-2014 tetanus toxoid, redu bill diphtheria toxoid, and acellular pertussis vaccine, adsorbed Amarilys Bailey PT Work Phone: [facility] 03-04-2002 hepatitis B vaccine, adult dosage Amarilys Bailey PT Work Phone: [facility] 01-09-2002 diphtheria, tetanus toxoids and acellular pertussis vaccine, unspecified formulation Amarilys Bailey PT Work Phone: [facility] 01-09-2002 hepatitis A vaccine, unspecified formulation Amarilys Bailey PT Work Phone: [facility] 01-09-2002 hepatitis B vaccine, adult dosage Amarilys Bailey PT Work Phone: [facility] 01-09-2002 measles, mumps, rube lla, and varicella virus vaccine Amarilys Bailey PT Work Phone: [facility] 05-03-1993 diphtheria, tetanus toxoids and acellular pertussis vaccine, unspecified formulation Amarilys Bailey PT Work Phone: [facility] 05-03-1993 haemophilus influenz ae type b vaccine, HbOC conjugate Amarilys Bailey PT Work Phone: [facility] 05-03-1993 measles, mumps, rube lla, and varicella virus vaccine Amarilys Bailey PT Work Phone: [facility] 05-03-1993 poliovirus vaccine, inactivated Amarilys Bailey PT Work Phone: [facility] 1991 diphtheria, tetanus toxoids and acellular pertussis vaccine, unspecified formulation Amarilys Bailey PT Work Phone: [facility] 1991 haemophilus influenz ae type b vaccine, HbOC conjugate Amarilys Bailey PT Work Phone: [facility] 1991 poliovirus vaccine, inactivated Amarilys Bailey PT Work Phone: [facility] 1991 diphtheria, tetanus toxoids and acellular pertussis vaccine, unspecified formulation Amarilys Bailey PT Work Phone: [facility] 1991 haemophilus influenz ae type b vaccine, HbOC conjugate Amarilys Bailey PT Work Phone: [facility] 1991 poliovirus vaccine, inactivated Amarilys Bailey PT Work Phone: [facility] 1991 diphtheria, tetanus toxoids and acellular pertussis vaccine, unspecified formulation Amarilys Bailey PT Work Phone: [facility] 1991 haemophilus influenz ae type b vaccine, HbOC conjugate Amarilys Bailey PT Work Phone: [facility] 1991 poliovirus vaccine, inactivated Amarilys Bailey PT Work Phone: [facility] Payers Date Payer Category Payer Unknown [facility] [employer] [id number] 2020-Present [phone] [address] [place] [address] PPO [id number] 2020 Unknown [facility] [employer] [id number] 2020-Present [phone] [address] [place] [address] PPO [id number] 2020 Unknown [id number] 1991 Unknown [id number] 1991 Unknown [id number] 1991 Unknown [id number] 1991 Unknown [id number] Unknown [id number] Social History Date Type Detail Facility [facility] Start: 02-07-2018 Tobacco use and exposure Smoke less tobacco non-user [facility] Start: 1991 Sex Assigned At Not on file C [facility] Start: 08-20-2021 End: 09-19-2021 Exposure to SARS-CoV-2 (event) Not sure [facility] Start: 07-01-2020 End: 04-14-2022 History of Social function [facility] Start: 07-01-2020 End: 04-14-2022 Tobacco use panel [facility] National Score (1-10 0), lower number is lower risk Not on file [facility] Clinical Notes 10-14-2021 to 06-04-2023 Addendum Note - Carolina Philip APRN.KAM - 06/04/2023 10:37 AM Carolina Shine APRN.GIS WEB DEVELOPER - 06/04/2023 10:18 AM Jessica Ryan APRN.KAM - 01/06/2022 6:01 PM EDT Note Date & Type Note Facility 06-04-2023 Note HNO ID: [id number] Author: Carolina Philip APRN.GIS WEB DEVELOPER Service: ? Author Type: Nurse Practitioner Type: [...] B02.8 -Discussed with Marilee Mcleod CNP at [facility] as patient is currently 20 weeks . - VALACYCLOVIR 1 GRAM TABLET Carolina Philip APRN.CNP [facility] 06-04-2023 Miscellaneous Notes Addended by: CAROLINA PHILIP on: 06/04/2023 10:37 AM Modules accepted: Orders documented in this encounter [facility] 06-04-2023 History of Presen t illness Narrative Chief Complaint Patient presents with: Rash: X3 days HPI Teja Conory is a 33 year old female who [...] B02.8 -Discussed with Marilee Mcleod CNP at [facility] as patient is currently 20 weeks . - VALACYCLOVIR 1 GRAM TABLET Carolina Philip APRN.GIS WEB DEVELOPER documented in this encounter [facility] 01-06-2022 History of Presen t illness [...] EYE DROPS Agrees to plan Feliz Ryan APRN.KAM documented in this encounter [facility] 11-29-2021 History of Presen t illness [...] treatment included: Therapeutic exercise, Manual therapy and Self-snf management. Goals for Episode of Care: created [...] Hyperactivity - Lower Extremity: Adductor Adductor: Bilateral (1/1) Pelvic Floor Tenderness/Hyperactivity: Tested Vaginally in Tested [...] Amarilys Bailey PT documented in this encounter [facility] 11-11-2021 History of Presen t illness [...] Amarilys Bailey PT documented in this encounter [facility] 10-28-2021 History of Presen t illness [...] - Trunk: Lower abdominals Lower abdominals: Bilateral (/) External Pelvic Region Tenderness/ Hyperactivity - Lower Extremity: Adductor Adductor: Bilateral (2/2, L>R) Pelvic Floor Tenderness/Hyperactivity: Tested Vaginally in Tested Vaginally in : Supine/hooklying Superficial transverse perineal: Left (07/23) Deep transverse perineal: Left (07/23) Iliococcygeus: Left (07/23) Pubococcygeus: Left (07/23) Tissue Restriction/Tenderness Scale: 1= mild, 2= moderate, 3= severe TREATMENT: Therapeutic Exercise: 1: *standing sidebend stretch, 3x66ryy each 2: *deep squat stretch, 2r46qtb 3: *BKTC stretch, 4u06sme Skilled Intervention: Patient was educated in proper [...] Amarilys Bailey PT documented in this encounter [facility] 10-21-2021 History of Presen t illness [...] severe TREATMENT: Therapeutic Exercise: 1: *piriformis stretch, 5f55inu each 2: *supine hip flexor stretch, 5i08xjy each 3: *supine 90/90 hamstring stretch, 2k38ple each Skilled Intervention: Patient was educated in [...] and assessment of patient's response to intervention. Self-Fci Management: 1: Reviewed purpose and function of [...] Amarilys Bailey PT documented in this encounter [facility] 10-14-2021 History of Presen t illness Narrative Episode Visit Count: 1 Therapist That Will Oversee The Plan Of Care: Amarilys Bailey Start of Care Date: 10/14/21 Onset Date: 06/16/20 Patient Identified by Name and Date of : Yes REHABILITATION AND SPORTS THERAPY PHYSICAL THERAPY EVALUATION PLAN OF CARE: Assessment: Tejamary Conroy presents with chief complaint of pelvic [...] Planned: 4 Planned Treatment Interventions: Therapeutic exercise (53312);Manual therapy (49907);Self-snf management (70114);Patient/Family/Caregiver Education PLAN FOR NEXT VISIT: discuss dilators, [...] Past Relevant Surgical Conditions: (see note) 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 Reviewed and educated patient on additions/changes for home exercise program as above (*). Skilled judgment was provided in selection of appropriate interventions. Provided written instruction for home exercise program to facilitate proper performance and compliance. Self-Fci Management: 1: Reviewed pelvic floor anatomy and [...] Amarilys Bailey PT documented in this encounter [facility] Diagnosis Pelvic pain in female- Primary Unspecified symptom associated with female genital organs Urethral spasm Other specified disorders of urethra [facility] Diagnosis Pelvic pain in female- Primary Unspecified symptom associated with female genital organs Urethral spasm Other specified disorders of urethra documented in this encounter [facility] note* Diagnosis Pelvic pain in female- Primary Unspecified symptom associated with female genital organs Urethral spasm Other specified disorders of urethra documented in this encounter [facility] note* Diagnosis Pelvic pain in female- Primary Unspecified symptom associated with female genital organs Urethral spasm Other specified disorders of urethra documented in this encounter [facility] note* Diagnosis Sinobronchitis- Primary Unspecified sinusitis (chronic) Bacterial conjunctivitis Other conjunctivitis documented in this encounter [facility] note* Diagnosis Herpes zoster with complication- Primary Herpes zoster with unspecified complication Mild intermittent extrinsic asthma without complication documented in this encounter [facility] Summary Purpose Family History No Family [...] or prosecute any alcohol or drug abuse patient.[facility] the event this information is protected by the Federal Confidentiality of Alcohol and Drug Abuse Patient Records regulations: The Federal rules restrict any use of the information to criminally investigate or prosecute any alcohol or drug abuse patient.[facility] the event this information is protected by the Federal Confidentiality of Alcohol and Drug Abuse Patient Records regulations: The Federal rules restrict any use of the information to criminally investigate or prosecute any alcohol or drug abuse patient.[facility] the event this information is protected by the Federal Confidentiality of Alcohol and Drug Abuse Patient Records regulations: The Federal rules restrict any use of the information to criminally investigate or prosecute any alcohol or drug abuse patient.[facility] the event this information is protected by the Federal Confidentiality of Alcohol and Drug Abuse Patient Records regulations: The Federal rules restrict any use of the information to criminally investigate or prosecute any alcohol or drug abuse patient.[facility] the event this information is protected by the Federal Confidentiality of Alcohol and Drug Abuse Patient Records regulations: The Federal rules restrict any use of the information to criminally investigate or prosecute any alcohol or drug abuse patient.[facility] the event this information is protected by the Federal Confidentiality of Alcohol and Drug Abuse Patient Records regulations: The Federal rules restrict any use of the information to criminally investigate or prosecute any alcohol or drug abuse patient.[facility] Reason for Visit (unrecogniz ed section and content) Specialty Diagnoses / Procedures Referred By Chinedu zamudio Referred To Contact Physical Therapy / PHYSICAL THERAPY Diagnoses Pelvic Floor Procedures NEW RS PT ORTH Barbi Maravilla [address] [facility] [address] [place] [address] Amarilys Bailey, PT [address] [place] [address] Referral ID Status Reason Start Date Expiration Date V isits Requested Visits Authorized [id number] Authorized 07/23/2021 07/22/2022 45 45 Reason Comments Physical Therapy Reason Comments PT Eval Reason Comments Conjunctivitis right eye started to day Acute Visit flu like symptoms x 1 week Reason Comments Rash X3 days Care Teams (unrecognized sec tion and content) Oil Developer Relationship Specialty Start Date End Date Liyah Sanchez APRN.GIS WEB DEVELOPER [address] [place], [place] [id number] PCP - General Family Practice 07/01/18 Oil Developer Relationship Specialty Start Date End Date Liyah Sanchez APRN.GIS WEB DEVELOPER [address] [place], [place] [id number] PCP - General Family Practice 07/01/18 Oil Developer Relationship Specialty Start Date End Date Liyah Sanchez APRN.GIS WEB DEVELOPER [address] [place], [place] [id number] PCP - General Family Practice 07/01/18 Oil Developer Relationship Specialty Start Date End Date Liyah Sanchez, ERWIN.GIS WEB DEVELOPER [address] [place], [place] [id number] PCP - General Family Practice 07/01/18 Oil Developer Relationship Specialty Start Date End Date Liyah Sanchez APRN.GIS WEB DEVELOPER [address] [place], [place] [phone] PCP - General Family Practice 07/01/18 Oil Developer Relationship Specialty Start Date End Date Liyah Sanchez APRN.GIS WEB DEVELOPER [address] [place] [address] PCP - General Family Medicine 07/01/18 INFORMATION SOURCE (unrecogn ized section and content) DATE CREATED AUTHOR AUTHOR'S ORGANIZ ATION 09/21/2023 [facility] FOR RECORDS PERTAINING TO PATIENTS WHO ARE [...] BE BASED ON THE PRIMARY CLINICAL RECORDS. [employer] provides no warranty or guarantee of the accuracy or completeness of information in this document.
== END | disposition home or self-care (01) ==
LOC: PAVLAB 15:07
PROVIDERS: PCP Physician Assistant; Referring Provider Advanced Practice Midwife; Visit Provider Advanced Practice Midwife
DX: R51.9 Headache, unspecified (principal)
CPT/HCPCS: 36415; 80053; 82570; 84156; 84550; 85025

== ENCOUNTER 2023-10-07 00:15 | Outpatient (CLI) | payer OTHER, SELFPAY ==
--- OUTSIDE RECORDS SUMMARY | 2023-10-07 00:26 | XMS RPT_ITS | CCD ---
Author Name Unknown Address [address] [place] [address] Organization [facility] Care Team Providers Care Power Machine Operator Name Role Phone Laura AMMONIUM SULFATE OPERATOR.Liyah HUMPHREY Primary Care Provider CAROLINA PHILIP Attending [...] Allergy to substance 9 Other: See Comments [facility] Medications Current Medications Medication Drug Class(es) [...] Drug Class(es) Dates Sig (Normalized) Sig (Original) [id number] 200 actuat albuterol 0.09 mg/actuat metered dose [...] 76.2 kg Carolina Philip APRN.CNP Work Phone: [facility] 06-04-2023 10:16-0500 Diastolic blood pressure 62 mm[Hg] Carolina Philip APRN.CNP Work Phone: [facility] 06-04-2023 10:16-0500 Heart rate 88 /min Carolina Philip APRN.CNP Work Phone: [facility] 06-04-2023 10:16-0500 Respiratory rate 14 /min Carolina Philip AMMONIUM SULFATE OPERATOR.RAILWAY SWITCHMAN Work Phone: [facility] 06-04-2023 10:16-0500 Systolic blood pressure 110 mm[Hg] Carolina Philip AMMONIUM SULFATE OPERATOR.RAILWAY SWITCHMAN Work Phone: [facility] 01-06-2022 16:30-0400 Body temperature 97.81 [degF] Feliz Ryan AMMONIUM SULFATE OPERATOR.RAILWAY SWITCHMAN Work Phone: [facility] 01-06-2022 16:30-0400 Body weight 67.5 kg Feliz Ryan AMMONIUM SULFATE OPERATOR.RAILWAY SWITCHMAN Work Phone: [facility] 01-06-2022 16:30-0400 Diastolic blood pressure 62 mm[Hg] Feliz Ryan AMMONIUM SULFATE OPERATOR.RAILWAY SWITCHMAN Work Phone: [facility] 01-06-2022 16:30-0400 Heart rate 72 /min Feliz Ryan AMMONIUM SULFATE OPERATOR.RAILWAY SWITCHMAN Work Phone: [facility] 01-06-2022 16:30-0400 Respiratory rate 21 /min Feliz Ryan AMMONIUM SULFATE OPERATOR.RAILWAY SWITCHMAN Work Phone: [facility] 01-06-2022 16:30-0400 SaO2% (BldA) [Mass fraction] 99 % Feliz Ryan AMMONIUM SULFATE OPERATOR.RAILWAY SWITCHMAN Work Phone: [facility] 01-06-2022 16:30-0400 Systolic blood pressure 108 mm[Hg] Feliz Ryan AMMONIUM SULFATE OPERATOR.RAILWAY SWITCHMAN Work Phone: [facility] Encounters Encounter Date Encounter Type Care Provider Facility Start: 09-13-2023 End: 09-13-2023 ambulatory ARASELI Miner [facility] Start: 08-16-2023 End: 08-16-2023 ambulatory ARASELI Miner [facility] Start: 07-26-2023 End: 07-26-2023 ambulatory ARASELI Miner [facility] Start: 06-04-2023 End: 06-05-2023 ambulatory CAROLINA PHILIP Facility:[facility] Start: 06-04-2023 End: 06-04-2023 Patient encounter procedure Carolina Cedrick HOOD.RAILWAY SWITCHMAN Work Phone: [facility] Plan of Treatment Date Care Activity Detail Author Start: 03-15-2030 Urine microalbumin profile DTaP,Tdap,Td Vaccine (8 - Td or Tdap) [facility] Start: 07-27-2027 HPV Testing HPV Testing [facility] Start: 11-11-2024 PAP TESTING PAP TESTING [facility] Start: 08-19-2024 Urine microalbumin profile DTAP,TDAP,TD (7 - Td or Tdap) [facility] Start: 06-04-2024 Annual PCP Team Wafer Fab Operator saman Disease Visit Annual PCP Team Chronic Disease Visit [facility] Start: 03-23-2023 Covid-19 Vaccine () Covid-19 Vaccine ( season) [facility] Start: 07-23-2022 Depression Assessment Depression Ass essment [facility] Start: 03-23-2022 Influenza vaccination INFLUENZA (Sea son Ended) [facility] Start: 03-23-2021 Influenza vaccination INFLUENZA (#1) [facility] Start: 2021 HPV TESTING HPV TESTING [facility] Start: 12-20-2019 ANNUAL PCP TEAM PLAYGROUND EQUIPMENT ERECTOR SAMAN DISEASE VISIT ANNUAL PCP TEAM CHRONIC DISEASE VISIT [facility] Start: 2009 HEPATITIS C SCREENING HEPATITIS C SC REENING [facility] Start: 2009 HIV SCREENING HIV SCREENING [facility] Start: 2009 SPIROMETRY SPIROMETRY [facility] Start: 2003 Adult depression screening assessment DEPRESSION SCREENING [facility] Start: 05-01-2002 Hepatitis B Vaccine (3 of 3 - 3-dose series) Hepatitis B Vaccine (3 of 3 - 3-dose series) [facility] Start: 1997 PNEUMOCOCCAL (1 - PCV) PNEUMOCOCCAL (1 - PCV) [facility] Start: 1997 Pneumococcal vaccination Pneum ococcal Vaccine (1 - PCV) [facility] Immunizations Immunization Date Immunization Notes Care Provider Romero gregg 05-31-2018 influenza, injectabl e, quadrivalent, contains preservative Amarilys Bailey PT Work Phone: [facility] 08-19-2014 tetanus toxoid, redu bill diphtheria toxoid, and acellular pertussis vaccine, adsorbed Amarilys Bailey PT Work Phone: [facility] 03-04-2002 hepatitis B vaccine, adult dosage Amarilys Bailey PT Work Phone: [facility] 01-09-2002 diphtheria, tetanus toxoids and acellular pertussis vaccine, unspecified formulation Amarilys Bailey PT Work Phone: [facility] 01-09-2002 hepatitis A vaccine, unspecified formulation Amarilys Bailey PT Work Phone: [facility] 01-09-2002 hepatitis B vaccine, adult dosage Amarilys Bailey PT Work Phone: [facility] 01-09-2002 measles, mumps, rube lla, and varicella virus vaccine Amarilys Bailey PT Work Phone: [facility] 05-03-1993 diphtheria, tetanus toxoids and acellular pertussis vaccine, unspecified formulation Amarilys Bailey PT Work Phone: [facility] 05-03-1993 haemophilus influenz ae type b vaccine, HbOC conjugate Amarilys Bailey PT Work Phone: [facility] 05-03-1993 measles, mumps, rube lla, and varicella virus vaccine Amarilys Bailey PT Work Phone: [facility] 05-03-1993 poliovirus vaccine, inactivated Amarilys Bailey PT Work Phone: [facility] 1991 diphtheria, tetanus toxoids and acellular pertussis vaccine, unspecified formulation Amarilys Bailey PT Work Phone: [facility] 1991 haemophilus influenz ae type b vaccine, HbOC conjugate Amarilys Bailey PT Work Phone: [facility] 1991 poliovirus vaccine, inactivated Amarilys Bailey PT Work Phone: [facility] 1991 diphtheria, tetanus toxoids and acellular pertussis vaccine, unspecified formulation Amarilys Bailey PT Work Phone: [facility] 1991 haemophilus influenz ae type b vaccine, HbOC conjugate Amarilys Bailey PT Work Phone: [facility] 1991 poliovirus vaccine, inactivated Amarilys Bailey PT Work Phone: [facility] 1991 diphtheria, tetanus toxoids and acellular pertussis vaccine, unspecified formulation Amarilys Bailey PT Work Phone: [facility] 1991 haemophilus influenz ae type b vaccine, HbOC conjugate Amarilys Bailey PT Work Phone: [facility] 1991 poliovirus vaccine, inactivated Amarilys Bailey PT Work Phone: [facility] Payers Date Payer Category Payer Unknown [facility] [employer] [id number] 2020-Present [phone] [address] [place] [address] PPO [id number] 2020 Unknown [facility] [employer] [id number] 2020-Present [phone] [address] [place] [address] PPO [id number] 2020 Unknown [id number] 1991 Unknown [id number] 1991 Unknown [id number] 1991 Unknown [id number] 1991 Unknown [id number] Unknown [id number] Social History Date Type Detail Facility [facility]: [facility]07[facility] Start: 02-07-2018 Tobacco use and exposure Smoke less tobacco non-user [facility] Start: 1991 Sex Assigned At Not on file [facility] Start: 08-20-2021 End: 09-19-2021 Exposure to SARS-CoV-2 (event) Not sure [facility] Start: 07-01-2020 End: 04-14-2022 History of Social function [facility] Start: 07-01-2020 End: 04-14-2022 Tobacco use panel [facility] National Score (1-10 0), lower number is lower risk Not on file [facility] Clinical Notes 10-14-2021 to 06-04-2023 Addendum Note - Carolina Philip APRN.KAM - 06/04/2023 10:37 AM Carolina Shine APRN.RAILWAY SWITCHMAN - 06/04/2023 10:18 AM Jessica Ryan APRN.KAM - 01/06/2022 6:01 PM EDT Note Date & Type Note Facility 06-04-2023 Note HNO ID: [id number] Author: Carolina Philip APRN.RAILWAY SWITCHMAN Service: ? Author Type: Nurse Practitioner Type: [...] B02.8 -Discussed with Marilee Mcleod CNP at [facility] as patient is currently 20 weeks . - VALACYCLOVIR 1 GRAM TABLET Carolina Philip APRN.CNP [facility] 06-04-2023 Miscellaneous Notes Addended by: CAROLINA PHILIP on: 06/04/2023 10:37 AM Modules accepted: Orders documented in this encounter [facility] 06-04-2023 History of Presen t illness [...] B02.8 -Discussed with Marilee Mcleod CNP at [facility] as patient is currently 20 weeks . - VALACYCLOVIR 1 GRAM TABLET Carolina Philip APRN.RAILWAY SWITCHMAN documented in this encounter [facility] 01-06-2022 History of Presen t illness [...] Feliz Ryan APRN.KAM documented in this encounter [facility] 11-29-2021 History of Presen t illness [...] treatment included: Therapeutic exercise, Manual therapy and Self-usp management. Goals for Episode of Care: created [...] Amarilys Bailey PT documented in this encounter [facility] 11-11-2021 History of Presen t illness [...] Amarilys Bailey PT documented in this encounter [facility] 10-28-2021 History of Presen t illness [...] TREATMENT: Therapeutic Exercise: 1: *standing sidebend stretch, 3d39egr each 2: *deep squat stretch, 7z58zby 3: *BKTC stretch, 7t42dmx Skilled Intervention: Patient was educated in proper [...] Amarilys Bailey PT documented in this encounter [facility] 10-21-2021 History of Presen t illness [...] severe TREATMENT: Therapeutic Exercise: 1: *piriformis stretch, 6d64xxa each 2: *supine hip flexor stretch, 4f39emj each 3: *supine 90/90 hamstring stretch, 7s34cwb each Skilled Intervention: Patient was educated in [...] and assessment of patient's response to intervention. 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 Reviewed and educated patient on additions/changes for home exercise program as above (*). Skilled judgment was provided in selection of appropriate interventions. Provided written instruction for home exercise program to facilitate proper performance and compliance. Self-Correction Management: 1: Reviewed pelvic floor anatomy and [...] Amarilys Bailey PT documented in this encounter [facility] Diagnosis Pelvic pain in female- Primary Unspecified symptom associated with female genital organs Urethral spasm Other specified disorders of urethra [facility] Diagnosis Pelvic pain in female- Primary Unspecified symptom associated with female genital organs Urethral spasm Other specified disorders of urethra documented in this encounter [facility] note* Diagnosis Pelvic pain in female- Primary Unspecified symptom associated with female genital organs Urethral spasm Other specified disorders of urethra documented in this encounter [facility] note* Diagnosis Pelvic pain in female- Primary Unspecified symptom associated with female genital organs Urethral spasm Other specified disorders of urethra documented in this encounter [facility] note* Diagnosis Sinobronchitis- Primary Unspecified sinusitis (chronic) Bacterial conjunctivitis Other conjunctivitis documented in this encounter [facility] note* Diagnosis Herpes zoster with complication- Primary Herpes zoster with unspecified complication Mild intermittent extrinsic asthma without complication documented in this encounter [facility] Summary Purpose Family History No Family [...] or prosecute any alcohol or drug abuse patient.[facility] the event this information is protected by the Federal Confidentiality of Alcohol and Drug Abuse Patient Records regulations: The Federal rules restrict any use of the information to criminally investigate or prosecute any alcohol or drug abuse patient.[facility] the event this information is protected by the Federal Confidentiality of Alcohol and Drug Abuse Patient Records regulations: The Federal rules restrict any use of the information to criminally investigate or prosecute any alcohol or drug abuse patient.[facility] the event this information is protected by the Federal Confidentiality of Alcohol and Drug Abuse Patient Records regulations: The Federal rules restrict any use of the information to criminally investigate or prosecute any alcohol or drug abuse patient.[facility] the event this information is protected by the Federal Confidentiality of Alcohol and Drug Abuse Patient Records regulations: The Federal rules restrict any use of the information to criminally investigate or prosecute any alcohol or drug abuse patient.[facility] the event this information is protected by the Federal Confidentiality of Alcohol and Drug Abuse Patient Records regulations: The Federal rules restrict any use of the information to criminally investigate or prosecute any alcohol or drug abuse patient.[facility] the event this information is protected by the Federal Confidentiality of Alcohol and Drug Abuse Patient Records regulations: The Federal rules restrict any use of the information to criminally investigate or prosecute any alcohol or drug abuse patient.[facility] Reason for Visit (unrecogniz ed section and content) Specialty Diagnoses / Procedures Referred By Chinedu [email or web address] Referred To Contact Physical Therapy / PHYSICAL THERAPY Diagnoses Pelvic Floor Procedures NEW RS PT ORTH Barbi Maravilla [address] [facility] [address] [place] [address] Amarilys Bailey, PT [address] [place] [address] Referral ID Status Reason Start Date Expiration Date V isits Requested Visits Authorized [id number] Authorized 07/23/2021 07/22/2022 45 45 Reason Comments Physical Therapy Reason Comments PT Eval Reason Comments Conjunctivitis right eye started to day Acute Visit flu like symptoms x 1 week Reason Comments Rash X3 days Care Teams (unrecognized sec tion and content) Power Machine Operator Relationship Specialty Start Date End Date Liyah Sanchez APRN.RAILWAY SWITCHMAN [address] [place], [place] [id number] PCP - General Family Practice 07/01/18 Power Machine Operator Relationship Specialty Start Date End Date Liyah Sanchez APRN.RAILWAY SWITCHMAN [address] [place], [place] [id number] PCP - General Family Practice 07/01/18 Power Machine Operator Relationship Specialty Start Date End Date Liyah Sanchez APRN.RAILWAY SWITCHMAN [address] [place], [place] [id number] PCP - General Family Practice 07/01/18 Power Machine Operator Relationship Specialty Start Date End Date Liyah Sanchez, ERWIN.RAILWAY SWITCHMAN [address] [place], [place] [id number] PCP - General Family Practice 07/01/18 Power Machine Operator Relationship Specialty Start Date End Date Liyah Sanchez APRN.RAILWAY SWITCHMAN [address] [place], [place] [id number] PCP - General Family Practice 07/01/18 Power Machine Operator Relationship Specialty Start Date End Date Liyah Sanchez APRN.RAILWAY SWITCHMAN [address] [place] [address] PCP - General Family Medicine 07/01/18 INFORMATION SOURCE (unrecogn ized section and content) DATE CREATED AUTHOR AUTHOR'S ORGANIZ ATION 09/21/2023 [facility] FOR RECORDS PERTAINING TO PATIENTS WHO [...] BE BASED ON THE PRIMARY CLINICAL RECORDS. [employer] provides no warranty or guarantee of the accuracy or completeness of information in this document.
[2023-10-07 00:27] VITALS: BMI 32.5
[2023-10-07 00:32] VITALS: BP 118/69; PULSE 77; O2SAT 96
[2023-10-07 00:34] VITALS: O2SAT 80
--- NOTE | 2023-10-07 12:55 | OB.TRI.HP_ITS ---
HPI - General General Date of Admission: 10/07/23 HPI Narrative TEJA CONROY, is a 33 y/o @ 38 weeks 1 day who presents to l&d with the complaint of contractions and decreased movement. she denies feeling severe pain, lof, vaginal bleeding and is more concerned about the decreased movement. Since being here however she feels more movement. Maternal Data Information JEWEL Calculator Estimated Delivery Date Method Current WG Current Estimate 10/20/23 LMP (Certain) 38w 1d PFSH PFSH Medical History Contraceptive management COVID-19 affecting in second trimester Recurrent UTI Home Medications multivitamin no.47-iron fum 27 mg-folate no.1 1 mg-dha 300 mg capsule (PNV-DHA) 1 cap PO Check with primary doctor 11/12/19 [History Last Taken 10/06/23] cetirizine 10 mg capsule (Zyrtec) 10 mg PO DAILY 03/06/23 [History Last Taken Unknown] famotidine 20 mg tablet 20 mg PO BID 03/06/23 [History Last Taken 10/06/23] aspirin 81 mg chewable tablet 81 mg PO DAILY 05/09/23 [History Last Taken 10/05] cephalexin 250 mg capsule 250 mg PO QHS 09/14/23 [History Last Taken Unknown] magnesium 200 mg tablet 200 mg PO DAILY 09/14/23 [History Last Taken 10/06/23] Allergy/AdvReac Type Severity Reaction Status Date / Time No Known Allergies Allergy Verified 10/05/23 10:04 Family History Father Cancer Diabetes Grandmother Breast cancer Cancer Surgical History No history of previous surgery [place] teeth extracted Social History adopted: No household members: spouse and children housing: condominium number of children: 1 current occupational status: employed current occupation: [employer] pets and animals: Yes (not managing the litterbox) pets and animals: cat(s) and dog(s) history of recent travel: Yes ([place]- January, [place] -December) out of state: Yes out of country: Yes sexually active: Yes Smoking Status: Never smoker second hand exposure: No alcohol intake: current alcohol intake frequency: a few times a week details: NOT WHILE substance use type: does not use well-balanced diet: daily or most days caffeine: No eating out: 4 or more times/week during the past year weight has: increased > 10 lbs what type of physical activity do you participate in: walking frequency: 1-2 times per week duration: 30-45 minutes/day nicki/yazdanism: Druze seatbelt use: always do you feel safe at home: Yes additional social history: - 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 Date Name GA/Weeks Outcome Route Bth Weight Infant Gen Labor Lgth Anesthesia Del Locatn Provider FOB 06/05/20 Crispin 39 live - full term 6lbs 12oz Male ep idural [facility] Marcanthony Delivery Date: 06/05/20 Last Updated by: Marina Bhakta IOL Visit Details Expected Delivery Route/Plan Labor Preferences- CB/BF classes: no labor support person: Tia labor intervention preferences: [] pain management options preferred: epidural cut cord/dad catch: yes : yes PP control planned: discussed discussed possible routes of delivery and associated risks: [] special requests: [] Plans Covid status: vaccinated Flu vaccine: given Tdap vaccine: give Rhogam: NA LARC form signed: Yes movement and labor precautions reviewed. Problem list reviewed and updated with the most current plan of care details and appropriate orders placed. Relevant counseling for the gestational age provided. Continue routine care and follow up unless otherwise noted in visit notes/problem list details OB Flowsheet Initial Weight: Not Recorded Date -?-?-?-?-?-?-?-?-?-?-?-?- EGA Weight BP Urine Prot -?-?-?-?-?-?-?-?-?-?-?-?- Glucose FHR FuHt Pres Dilation -?-?-?-?-?-?-?-?-?-?-?-?- Effaced St Visit Note 03/15/23 -?-?-?-?-?-?-?-?-?-?-?-?- 8w 5d 160 lb 2 oz 118/71 -?-?-?-?-?-?-?-?-?-?-?-?- 160 -?-?-?-?-?-?-?-?-?-?-?-?- JV- CRL consiste nt with LMP . desires NIPT. 04/10/23 -?-?-?-?-?-?-?-?-?-?-?-?- 12w 3d 162 lb 111/70 Negative -?-?-?-?-?-?-?-?-?-?-?-?- Negative 153 -?-?-?-?-?-?-?-?-?-?-?-?- JV- normal NIPT. Girl. no complaints today 05/09/23 -?-?-?-?-?-?-?-?-?-?-?-?- 16w 4d 165 lb 110/62 Negative -?-?-?-?-?-?-?-?-?-?-?-?- Negative 154 -?-?-?-?-?-?-?-?-?-?-?-?- MH-No VB. Covid + last week. Still feeling fatigued. Taking ASA. 06/08/23 -?-?-?-?-?-?-?-?-?-?-?-?- 20w 6d 170 lb 6 oz 114/71 Nega tive -?-?-?-?-?-?-?-?-?-?-?-?- Negative 145 -?-?-?-?-?-?-?--?-?-?-?-?- JV- no lof, vagi nal bleeding, or cramping. [place]. needs rpt us at 28 weeks for low lying placenta. 07/06/23 -?-?-?-?-?-?-?-?-?-?-?-?- 24w 6d 176 lb 6 oz 101/57 -?-?-?-?-?-?-?-?-?-?-?-?- 140 25 -?-?-?-?-?-?-?-?-?-?-?-?- JV- no lof, vagi nal bleeding, or dec fm. glucola given. 07/30/23 -?-?-?-?-?-?-?-?-?-?-?-?- 28w 2d 179 lb 110/70 -?-?-?-?-?-?-?-?-?-?-?-?- 140 29 -?-?-?-?-?-?-?-?-?-?-?-?- SM- no vb lof go od fm no regular ctx 08/14/23 -?-?-?-?-?-?-?-?-?-?-?-?- 30w 3d 180 lb 2 oz 114/62 Nega tive -?-?-?-?-?-?-?-?-?-?-?-?- Negative 161 30 -?-?-?-?-?-?-?-?-?-?-?-?- MH-No VB, LOF. G ood FM. Larc. 08/28/23 -?-?-?-?-?-?-?-?-?-?-?-?- 32w 3d 183 lb 4 oz 111/69 Nega tive -?-?-?-?-?-?-?-?-?-?-?--?- Negative 150 32 -?-?-?-?-?-?-?-?-?-?-?-?- kw- no vb/lof/ct x. good fm. Had Tdap. next US 09/13. 09/14/23 -?-?-?-?-?-?-?-?-?-?-?-?- 34w 6d 187 lb 124/76 Negative -?-?-?-?-?-?-?-?-?-?-?-?- Negative 142 32 -?-?-?-?-?-?-?-?-?-?-?-?- Lc- growth scan yesterday at 47%, has repeat in 4 weeks scheduled. denies lof/vb/ctx. good fm 09/24/23 -?-?-?-?-?-?-?-?-?-?-?-?- 36w 2d 185 lb 8 oz 111/72 Nega tive -?-?-?-?-?-?-?-?-?-?-?-?- Negative 145 37 Cephalic 1 -?-?-?-?-?-?-?-?-?-?-?-?- 0 -3 JV- no lof , vaginal bleeding, or dec fm. 10/02/23 -?-?-?-?-?-?-?-?-?-?-?-?- 37w 3d 188 lb 6 oz 104/69 Nega tive -?-?-?-?-?-?-?-?-?-?-?-?- Negative 135 37 -?-?-?-?-?-?-?-?-?-?-?-?- KW-work in today for headache x 2 days, does subside with tylenol. no vb/cramping/dec FM. pre e labs ordered. 10/05/23 -?-?-?-?-?-?-?-?-?-?-?-?- 37w 6d 188 lb 109/69 Negative -?-?-?-?-?-?-?-?-?-?-?-?- Negative 150 38 Cephalic 1 .5 -?-?-?-?-?-?-?-?-?-?-?-?- 50 -1 SM- no vb lof good fm no regular ctx ROS Constitutional Constitutional: Reports systems reviewed and no addt'l complaints, except as documented Gastrointestinal Gastrointestinal: Denies bloating, constipation, cramping, diarrhea, nausea or vomiting Genitourinary Genitourinary: Reports other Details: Denies vaginal odor, vaginal bleeding, or vaginal discharge ; Denies difficulty urinating or flank pain NST FHR Rate Baby A Baseline: 120 Variability:: Moderate Accelerations:: 15 x 15 Decelerations:: None NST Reactive:: Yes FHR Category:: Category I Assessment & Plan (1) False labor after 37 completed weeks of gestation: (2) 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 Growth US Q4w (45%) (3) COVID-19 affecting in second trimester: COMMENT: 81mg asa low dose daily (4) Seasonal allergies: (5) Supervision of high-risk : QUALIFIERS: Trimester: second trimester Qualified Code(s): O09.92 - Supervision of high risk , unspecified, second trimester COMMENT: [id number], JEWEL 10/20/23, girl PC Crispin, Tia (6) : QUALIFIERS: Weeks of gestation: 37 weeks Qualified Code(s): Z3A.37 - 37 weeks gestation of COMMENT: GBS neg, NIPT low risk, discussed carrier testing and afp. anatomy reviewed. PLAN: Plan no cervical change after 84 minutes of monitoring ok to dc to home with labor precautions. Charges/Coding Multi Select Codes Urinary/Genital Urinary/Genital CPT Codes: 99435-04 non-stress test Interp
== END 2023-10-07 02:10 | disposition home or self-care (01) ==
LOC: WPOUT 00:22 → WP 00:22
PROVIDERS: PCP Physician Assistant; Visit Provider Obstetrics & Gynecology
DX: O47.1 False labor at or after 37 completed weeks of gestation (principal); O09.893 Supervision of other high risk pregnancies, third trimester; Z3A.37 37 weeks gestation of pregnancy; O99.513 Diseases of the respiratory system complicating pregnancy, third trimester; J30.2 Other seasonal allergic rhinitis; Z86.16 Personal history of COVID-19
CPT/HCPCS: 59025; 59050; 99221; G0378

== ENCOUNTER → 2023-10-16 | Outpatient (CLI) | payer OTHER, SELFPAY ==
--- NOTE | 2023-10-16 12:32 | US_ITS ---
STUDY: SECOND AND THIRD TRIMESTER OBSTETRICAL ULTRASOUND - LIMITED REASON FOR EXAM: Female, 33 years old uterine date size discrepancy . Smaller than dates. LMP: January 13, 2023. PRIOR ULTRASOUND: None. TECHNIQUE: Transabdominal TECHNICAL QUALITY: Adequate. FINDINGS: There is a single intrauterine fetus. The fetus is in a cephalic presentation. There is demonstrated cardiac activity with a heart rate of 152 bpm. There is a normal amniotic fluid volume. The largest amniotic fluid pocket measures 4.2 cm. The amniotic fluid index (NIDA) is 12.5 cm. The placenta is anterior in location and is not low lying. There are Grade 2 placental changes. The cervix was not measured due to the head position. BIOMETRY: BPD: 9.2 cm: 37 weeks, 4 days HC: 33 cm: 37 weeks, 3 days AC: 35 cm: 39 weeks, 2 days FL: 7.5 cm: 38 weeks, 2 days Age by LMP: 39 weeks, 3 days. JEWEL by LMP: October 20, 2023. age by current US: 38 weeks, 0 days. JEWEL by current US: October 30, 2023. Estimated weight: 3615 grams, +/- 542 grams, 59 percentile. US/OB Limited With Biometrics IMPRESSION: Single live intrauterine gestation with a mean gestational age of 38 weeks. Electronically Signed: Chad Shaw MD at 14:00 EDT ,
== END | disposition home or self-care (01) ==
LOC: US 12:32
PROVIDERS: PCP Physician Assistant; Referring Provider Obstetrics & Gynecology; Visit Provider Obstetrics & Gynecology
DX: Q62.5 Duplication of ureter (principal)
CPT/HCPCS: 76816

== ENCOUNTER 2023-10-21 20:05 | Inpatient (IN) | payer OTHER, SELFPAY ==
[2023-10-21] VITALS (22 sets, daily range): BP systolic 118–148; BP diastolic 66–84; PULSE 52–88; RESP 16; TEMP 36.4–36.8; O2SAT 93–100; BMI 32.3
[2023-10-21 20:39] LABS: Absolute Neutrophil Count 8.4 X10^3/uL (2.0-7.7); Basophil# 0.07 X10^3/uL; Basophil% 0.6 % (0-1); Eosinophil# 0.08 X10^3/uL; Eosinophils% 0.6 % (0-5); Hematocrit 34.8 % (37-47); Hemoglobin 11.8 g/dL (12.0-15.0); Lymphocyte % 19.4 % (19-41); Mean Corp Hgb Conc 33.9 g/dL (32-36); Mean Corpuscular Hgb 32.9 pg (27.0-32.0); Mean Corpuscular Volume 96.9 fL (81-99); Mean Platelet Vol. 10.7 fl (6.2-12.0); Monocyte# 1.15 X10^3/uL; Monocyte% 9.3 % (0-10); NRBC Flagged by Analyzer 0 % (0-5); Neutrophil # 8.38 X10^3/uL (2.7-7.7); Neutrophil % 67.8 % (47-70); Platelet Count 233 K/mm3 (150-450); RBC Distribution Width CV 13.2 % (11.6-14.6); RBC Distribution Width SD 46.5 fl (35.1-43.9); Red Blood Count 3.59 M/mm3 (4.2-5.4); White Blood Count 12.4 K/mm3 (4.4-11.0)
[2023-10-21 21:22] LABS: Syphilis Antibodies Non-reactive
[2023-10-21] MEDS: LACTATED RINGERS 500 ML 999 ML IV (21:38)
[2023-10-21] MEDS: Lactated Ringers 1,000 ML 50 ML IV (21:38)
[2023-10-21] MEDS: Mag Hydrox/Al Hydrox/Simeth 30 ML UDC PO (21:54)
[2023-10-21] MEDS: fentaNYL-bupivacaine (epidural) 100 ML BAG EPIDURAL (22:31)
--- NOTE | 2023-10-21 22:35 | HP.PCM.OB_ITS ---
HPI - General General Date of Admission: 10/21/23 HPI Narrative TEJA CONROY, is a 33 F who presents IAL regualr ctx, made change to 6 cm, no lof admits good fm. got epidural. Maternal Data Information JEWEL Calculator Estimated Delivery Date Method Current WG Current Estimate 10/20/23 LMP (Certain) 40w 1d PFSH PFSH Medical History Contraceptive management COVID-19 affecting in second trimester Recurrent UTI Home Medications multivitamin no.47-iron fum 27 mg-folate no.1 1 mg-dha 300 mg capsule (PNV-DHA) 1 cap PO DAILY Check with primary doctor 11/12/19 [History Last Taken 10/20/23] cetirizine 10 mg capsule (Zyrtec) 10 mg PO DAILY 03/06/23 [History Last Taken Unknown] famotidine 20 mg tablet 20 mg PO BID 03/06/23 [History Last Taken 10/20/23] aspirin 81 mg chewable tablet 81 mg PO DAILY 05/09/23 [History Last Taken 10/06/23] cephalexin 250 mg capsule 250 mg PO QHS 09/14/23 [History Last Taken 10/20/23] magnesium 200 mg tablet 200 mg PO DAILY 09/14/23 [History Last Taken 10/20/23] Allergy/AdvReac Type Severity Reaction Status Date / Time No Known Allergies Allergy Verified 10/21/23 19:44 Family History Father Cancer Diabetes Grandmother Breast cancer Cancer Surgical History No history of previous surgery [place] teeth extracted Social History adopted: No household members: spouse and children housing: condominium number of children: 1 current occupational status: employed current occupation: [employer] pets and animals: Yes (not managing the litterbox) pets and animals: cat(s) and dog(s) history of recent travel: Yes ([place]- January, [place] -December) out of state: Yes out of country: Yes sexually active: Yes Smoking Status: Never smoker second hand exposure: No alcohol intake: current alcohol intake frequency: a few times a week details: NOT WHILE substance use type: does not use well-balanced diet: daily or most days caffeine: No eating out: 4 or more times/week during the past year weight has: increased > 10 lbs what type of physical activity do you participate in: walking frequency: 1-2 times per week duration: 30-45 minutes/day nicki/protestant: Taoist seatbelt use: always do you feel safe at home: Yes additional social history: - 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 Date Name GA/Weeks Outcome Route Bth Weight Gen Labor Lgth A chuckie Yadavatfrancisca Provider FOB 06/05/20 Crispin 39 live - full term 6lbs 12oz Male ep idural [facility] Marcdamarisony Delivery Date: 06/05/20 Last Updated by: Marina Bhakta IOL Visit Details Expected Delivery Route/Plan Labor Preferences- CB/BF classes: no labor support person: Tia labor intervention preferences: [] pain management options preferred: epidural cut cord/dad catch: yes : yes PP control planned: discussed discussed possible routes of delivery and associated risks: [] special requests: [] Plans Covid status: vaccinated Flu vaccine: given Tdap vaccine: give Rhogam: NA LARC form signed: Yes movement and labor precautions reviewed. Problem list reviewed and updated with the most current plan of care details and appropriate orders placed. Relevant counseling for the gestational age provided. Continue routine care and follow up unless otherwise noted in visit notes/problem list details OB Flowsheet Initial Weight: Not Recorded Date -?-?-?-?-?-?-?-?-?-?-?-?- EGA Weight BP Urine Prot -?-?-?-?-?-?-?-?-?-?-?-?- Glucose FHR FuHt Pres Dilation -?-?-?-?-?-?-?-?-?-?-?-?- Effaced St Visit Note 03/15/23 -?-?-?-?-?-?-?-?-?-?-?-?- 8w 5d 160 lb 2 oz 118/71 -?-?-?-?-?-?-?-?-?--?-?-?- 160 -?-?-?-?-?-?-?-?-?-?-?-?- JV- CRL consiste nt with LMP . desires NIPT. 04/10/23 -?-?-?-?-?-?-?-?-?-?-?-?- 12w 3d 162 lb 111/70 Negative -?-?-?-?-?-?-?-?-?-?-?-?- Negative 153 -?-?-?-?-?-?-?-?-?-?-?-?- JV- normal NIPT. Girl. no complaints today 05/09/23 -?-?-?-?-?-?-?-?-?-?-?-?- 16w 4d 165 lb 110/62 Negative -?-?-?-?-?-?-?-?-?-?-?-?- Negative 154 -?-?-?-?-?-?-?-?-?-?-?-?- MH-No VB. Covid + last week. Still feeling fatigued. Taking ASA. 06/08/23 -?-?-?-?-?-?-?-?-?-?-?-?- 20w 6d 170 lb 6 oz 114/71 Nega tive -?-?-?-?-?-?-?-?-?-?-?-?- Negative 145 -?-?-?-?-?-?-?-?-?-?-?-?- JV- no lof, vagi nal bleeding, or cramping. [place]. needs rpt us at 28 weeks for low lying placenta. 07/06/23 -?-?-?-?-?-?-?-?-?-?-?-?- 24w 6d 176 lb 6 oz 101/57 -?-?-?-?-?-?-?-?-?-?-?-?- 140 25 -?-?-?-?-?-?-?-?-?-?-?-?- JV- no lof, vagi nal bleeding, or dec fm. glucola given. 07/30/23 -?-?-?-?-?-?-?-?-?-?-?-?- 28w 2d 179 lb 110/70 -?-?-?-?-?-?-?-?-?-?-?-?- 140 29 -?-?-?-?-?-?--?-?-?-?-?-?- SM- no vb lof go od fm no regular ctx 08/14/23 -?-?-?-?-?-?-?-?-?-?-?-?- 30w 3d 180 lb 2 oz 114/62 Nega tive -?-?-?-?-?-?-?-?-?-?-?-?- Negative 161 30 -?-?-?-?-?-?-?-?-?-?-?-?- MH-No VB, LOF. G ood FM. Larc. 08/28/23 -?-?-?-?-?-?-?-?-?-?-?-?- 32w 3d 183 lb 4 oz 111/69 Nega tive -?-?-?-?-?-?-?-?-?-?-?-?- Negative 150 32 -?-?-?-?-?-?-?-?-?-?-?-?- kw- no vb/lof/ct x. good fm. Had Tdap. next US 09/13. 09/14/23 -?-?-?-?-?-?-?-?-?-?-?-?- 34w 6d 187 lb 124/76 Negative -?-?-?-?-?-?-?-?-?-?-?-?- Negative 142 32 -?-?-?-?-?-?-?-?-?-?-?-?- Lc- growth scan yesterday at 47%, has repeat in 4 weeks scheduled. denies lof/vb/ctx. good fm 09/24/23 -?-?-?-?-?-?-?-?-?-?-?-?- 36w 2d 185 lb 8 oz 111/72 Nega tive -?-?-?-?-?-?-?-?-?-?-?-?- Negative 145 37 Cephalic 1 -?-?-?-?-?-?-?-?-?-?-?-?- 0 -3 JV- no lof , vaginal bleeding, or dec fm. 10/02/23 -?-?-?-?-?-?-?-?-?-?-?-?- 37w 3d 188 lb 6 oz 104/69 Nega tive -?-?-?-?-?-?-?-?-?-?-?-?- Negative 135 37 -?-?-?-?-?-?-?-?-?-?-?-?- KW-work in today for headache x 2 days, does subside with tylenol. no vb/cramping/dec FM. pre e labs ordered. 10/05/23 -?-?-?-?-?-?-?-?-?-?-?-?- 37w 6d 188 lb 109/69 Negative -?-?-?-?-?-?-?-?-?-?-?-?- Negative 150 38 Cephalic 1 .5 -?-?-?-?-?-?-?-?-?-?-?-?- 50 -1 SM- no vb lof good fm no regular ctx 10/12/23 -?-?-?-?-?-?-?-?-?-?-?-?- 38w 6d 189 lb 111/72 -?-?-?-?-?-?-?-?-?-?-?-?- 140 39 Cephalic 1.5 -?-?-?-?-?-?-?-?-?-?-?-?- 50 -1 SM- no vb lof good fm no regular ctx 10/16/23 -?-?-?-?-?-?-?-?-?-?-?-?- 39w 3d 187 lb 103/72 Negative -?-?-?-?-?-?-?-?-?-?-?-?- Negative 140 37 Cephalic 1 .5 -?-?-?-?-?-?-?-?-?-?-?-?- SM- no vb lof go od fm no regular ctx mario 9 cm get growth scan NST FHR Rate Baby A Baseline: 130 Variability:: Moderate Accelerations:: 15 x 15 Decelerations:: None NST Reactive:: Yes FHR Category:: Category I (isolated variable earlier) Uterine Activity:: q3-5 ROS Constitutional Constitutional: Reports systems reviewed and no addt'l complaints, except as documented ENT HEENT: Reports systems reviewed and no addt'l complaints, except as documented Cardiovascular Cardiovascular: Reports systems reviewed and no addt'l complaints, except as documented Respiratory/Chest Respiratory/Chest: Reports systems reviewed and no addt'l complaints, except as documented Gastrointestinal Gastrointestinal: Reports systems reviewed and no addt'l complaints, except as documented and nausea; Denies abdominal pain Genitourinary Genitourinary: Reports systems reviewed and no addt'l complaints, except as documented, contractions Details: present and frequency (regular ) and movement Details: present Musculoskeletal Musculoskeletal: Reports systems reviewed and no addt'l complaints, except as documented Integumentary Integumentary: Reports as per HPI Neurologic Neurologic: Reports systems reviewed and no addt'l complaints, except as documented Endocrine Endocrinology: Reports systems reviewed and no addt'l complaints, except as documented Vital Signs Vital Signs Vital Signs: 10/21/23 19:42 10/21/23 19:42 10/21/23 19:36 Temperature Temperature Source Temporal Pulse Rate 81 Respiratory Rate Blood Pressure 127/76 H BP Systolic 127 BP Diastolic 76 Pulse Ox 10/21/23 19:36 10/21/23 19:36 10/21/23 21:18 Temperature 97.5 F L Temperature Source Pulse Rate 79 Respiratory Rate 16 Blood Pressure BP Systolic BP Diastolic Pulse Ox 10/21/23 21:18 10/21/23 21:23 10/21/23 21:23 Temperature Temperature Source Pulse Rate 88 Respiratory Rate Blood Pressure BP Systolic BP Diastolic Pulse Ox 100 100 10/21/23 21:28 10/21/23 21:28 10/21/23 21:28 Temperature Temperature Source Pulse Rate 81 Respiratory Rate Blood Pressure 143/81 H BP Systolic 143 BP Diastolic 81 Pulse Ox 100 10/21/23 21:28 10/21/23 21:33 10/21/23 21:33 Temperature Temperature Source Pulse Rate 86 77 Respiratory Rate Blood Pressure 148/84 H BP Systolic 148 BP Diastolic 84 Pulse Ox 10/21/23 21:34 10/21/23 21:34 10/21/23 21:39 Temperature Temperature Source Pulse Rate 61 Respiratory Rate Blood Pressure 134/71 H BP Systolic 134 BP Diastolic 71 Pulse Ox 100 10/21/23 21:39 10/21/23 21:39 10/21/23 21:39 Temperature Temperature Source Pulse Rate 76 69 Respiratory Rate Blood Pressure BP Systolic BP Diastolic Pulse Ox 98 10/21/23 21:44 10/21/23 21:45 10/21/23 21:44 Temperature Temperature Source Pulse Rate 66 72 Respiratory Rate Blood Pressure 137/71 H BP Systolic 137 BP Diastolic 71 Pulse Ox 10/21/23 21:45 10/21/23 21:44 10/21/23 21:48 Temperature Temperature Source Pulse Rate Respiratory Rate Blood Pressure 134/72 H BP Systolic 134 BP Diastolic 72 Pulse Ox 93 98 10/21/23 21:48 10/21/23 21:49 10/21/23 21:49 Temperature Temperature Source Pulse Rate 52 L 65 Respiratory Rate Blood Pressure BP Systolic BP Diastolic Pulse Ox 100 10/21/23 21:53 10/21/23 21:53 10/21/23 21:54 Temperature Temperature Source Pulse Rate 65 78 Respiratory Rate Blood Pressure 118/68 BP Systolic 118 BP Diastolic 68 Pulse Ox 10/21/23 21:54 10/21/23 21:59 10/21/23 21:59 Temperature Temperature Source Pulse Rate 65 Respiratory Rate Blood Pressure 130/69 H BP Systolic 130 BP Diastolic 69 Pulse Ox 96 10/21/23 21:59 10/21/23 22:04 10/21/23 22:04 Temperature Temperature Source Pulse Rate 67 Respiratory Rate Blood Pressure 121/67 H BP Systolic 121 BP Diastolic 67 Pulse Ox 99 10/21/23 22:04 10/21/23 22:08 10/21/23 22:08 Temperature Temperature Source Pulse Rate 57 L Respiratory Rate Blood Pressure 118/66 BP Systolic 118 BP Diastolic 66 Pulse Ox 98 10/21/23 22:09 10/21/23 22:09 10/21/23 22:14 Temperature Temperature Source Pulse Rate 81 Respiratory Rate Blood Pressure 130/71 H BP Systolic 130 BP Diastolic 71 Pulse Ox 99 10/21/23 22:14 10/21/23 22:14 10/21/23 22:18 Temperature Temperature Source Pulse Rate 78 Respiratory Rate Blood Pressure 123/72 H BP Systolic 123 BP Diastolic 72 Pulse Ox 97 10/21/23 22:18 10/21/23 22:19 10/21/23 22:19 Temperature Temperature Source Pulse Rate 62 73 Respiratory Rate Blood Pressure BP Systolic BP Diastolic Pulse Ox 98 Weight Weight: 188 lb 9.6 oz Body Mass Index (BMI) 32.3 Physical Exam Const alert, oriented x3 and healthy appearing Constitutional Narrative: uncomfortable with contractions HEENT normocephalic and moist oral mucous membranes Head and Scalp: atraumatic Neck full ROM, no lymphadenopathy, supple and thyroid normal General: trachea midline Thyroid: thyroid normal Lymph Lymphatic: no lymphadenopathy noted Chest inspection of chest normal Resp normal respiratory effort Cardio regular rate GI normal to inspection, nondistended, normoactive bowel sounds, soft to palpation and non-tender Inspection: gravid external exam normal Bimanual Exam - Vag & Uterus: uterus non-tender Manual OB Exam: estimated gestational size appropriate, presentation cephalic, dilated, effaced and station Extremity normal to inspection General Extremity: Negative for edema Skin no rashes or lesions noted Neuro deep tendon reflexes 2+ bilaterally Motor Exam: strength 5/5 throughout and clonus absent Psych mental status grossly normal Labs Labs Labs: Blood Type A POSITIVE Antibody Screen NEGATIVE Hct 34.8 % (37-47) L Hgb 11.8 g/dL (12.0-15.0) L Obstetrics Ultrasound Syphilis Total Ab Non-reactive Rubella IgG Antibody Reactive (Nonreactive) Hep Bs Antigen Non-Reactive (Nonreactive) Hepatitis C Antibody Non-Reactive (Nonreactive) Chlamydia DNA (ARACELI) Negative (Negative) N.gonorrhoeae DNA (ARACELI) Negative (Negative) HIV 1&2 Antibody Non-Reactive (Nonreactive) Glucose 1 Hr 50 gm 109 mg/dL (70-140) Gest Glucose Tolerance MG/DL Rhogam given: No Assessment & Plan (1) Active labor at term: (2) 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 Growth US Q4w (45%) (3) COVID-19 affecting in second trimester: COMMENT: 81mg asa low dose daily (4) Supervision of high-risk : QUALIFIERS: Trimester: second trimester Qualified Code(s): O09.92 - Supervision of high risk , unspecified, second trimester COMMENT: [id number], JEWEL 10/20/23, girl BENJI Roa, Tia (5) : QUALIFIERS: Weeks of gestation: 39 weeks Qualified Code(s): Z3A.39 - 39 weeks gestation of COMMENT: GBS neg, NIPT low risk, discussed carrier testing and afp. anatomy reviewed. PLAN: Plan Patient presents IAL, plan expectant management for , pitocin/AROM PRN if needed. Pain management: plans epidural. GBS neg. Management of any complications: none I have reviewed the [facility] and made any clinically relevant updates.
--- NOTE | 2023-10-21 23:27 | EX.PCM.OBRPT ---
Assessment & Plan (1) : QUALIFIERS: Weeks of gestation: 39 weeks Qualified Code(s): Z3A.39 - 39 weeks gestation of COMMENT: GBS neg, NIPT low risk, discussed carrier testing and afp. anatomy reviewed. 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 Growth US Q4w (45%) (5) COVID-19 affecting in second trimester: COMMENT: 81mg asa low dose daily (6) Vaginal delivery: COMMENT: SM girl 40 ial Maternal Data Information JEWEL Calculator Estimated Delivery Date Method Current WG Current Estimate 10/20/23 LMP (Certain) 40w 1d Vaginal Delivery Operative Information Pre-Operative Diagnosis: see a/p diagnoses Post-Operative Diagnosis: same Surgery / Procedure Performed: Spontaneous Vaginal Delivery Type of Anesthesia: Epidural Special Medications: none Estimated Blood Loss: 200 Fluids Replaced: crystalloid Findings Description of Procedure: Patient began pushing and delivered the head in the JLUIS presentation. The head was delivered atraumatically. The anterior and posterior shoulders delivered without complication followed by the rest of the and the was placed on the maternal abdomen. Delayed cord clamping was employed for approximately 60 seconds. Cord was clamped and cut and gentle traction was applied to the cord and the placenta delivered spontaneously immediately following it was noted to be intact with three-vessel cord. The perineum and vagina were inspected and noted to have no laceration. EBL was 200 cc. Patient and tolerated delivery well. Amniotic Fluid Description: Clear Placental Delivery Description: Spontaneous Placenta Disposition: [facility] Cord Vessel Description: 3 Vessels Cord Entanglement: None Delayed Cord Clamping: Yes Post Vaginal Delivery Medications Given After Delivery: IV Pitocin Episiotomy Description: None Complication Complications: None Procedures Urinary/Genital [id number]: [id number] Vaginal Delivery [facility]
--- NOTE | 2023-10-21 23:29 | DCINST_ITS ---
Discharge Instructions Diet Discharge Diet: No restrictions Activity Discharge Activity: Return to Normal Activity, May Not Drive (while taking narcotic pain medications.) and May Shower May resume sexual activity in: 4-6 weeks Dressing / Incision Call your doctor if your incision/area has: Continuous Slow Oozing, Sudden Increased Bleeding, Increased Pain/ Swelling, Increased Redness and Foul Smelling Discharge Follow Up Care Please Follow Up With: Danika Willams MD When: Call [phone] to make an appointment with your doctor in 6 weeks. If you had elevated blood pressure or 4th degree laceration, you will need to be seen in 2 weeks. Test Results: Test results from this visit will be discussed in further detail at your follow- up appointment, if applicable. Discharge Plan Admission Admit Date/Time: 10/21/23 20:05 Attending Provider: Danika Willams Primary Care Provider: Nilda Anderson Discharge Orders/Prescriptions Prescriptions: No Action PNV-DHA 27 mg iron-1 mg -300 mg capsule 1 cap PO DAILY Zyrtec 10 mg capsule 10 mg PO DAILY famotidine 20 mg tablet 20 mg PO BID aspirin 81 mg tablet,chewable 81 mg PO DAILY cephalexin 250 mg capsule 250 mg PO QHS Patient Comments: take 1 capsule by mouth at bedtime magnesium 200 mg tablet 200 mg PO DAILY Referrals / Follow Up: Nilda Anderson PA [Primary Care Provider] - Disposition Disposition (needs filled in before D/C Order can be placed): Home, Self Care
[2023-10-21] MEDS: Oxytocin 10 UNITS/ML Vial IM (23:55)
[2023-10-21] MEDS: Oxytocin 15 Units/NS 250ml 15 UNITS/250 ML IV.SOLN 83 UNITS IV (23:55)
[2023-10-22] VITALS (36 sets, daily range): BP systolic 103–143; BP diastolic 57–74; PULSE 36–88; RESP 16–18; TEMP 36.3–36.9; O2SAT 89–99
[2023-10-22] MEDS: Naproxen 500 MG Tablet PO ×2 (01:41→10:36)
--- NOTE | 2023-10-22 09:00 | PN.OBGYN_ITS ---
Subjective Subjective Patient doing well without complaints. Tolerating PO. Ambulating and voiding without difficulty. Feeding well. Denies chest pain, shortness of breath, calf pain/swelling, fevers, chills, lightheadedness. Objective Data Objective Data Vital Signs: Vital Signs Temp Pulse Resp BP Pulse Ox O2 Del Method 97.8 F 73 18 106/72 99 Room Air 10/22/23 08:56 10/22/23 08:56 10/22/23 08:56 10/22/23 08:56 10/22/23 08:56 10/22/23 08:56 Oxygen Delivery Method Room Air Weight: 188 lb 9.6 oz Body Mass Index (BMI) 32.3 Intake & Output: Intake and Output for Last 24 Hours 10/20/23 10/21/23 10/22/23 23:59 23:59 23:59 Intake Total 614.17 / 614.17 250 / 250 Output Total 800 / 800 Balance 614.17 / 614.17 -550 / -550 Lab / Micro Data 10/21/23 20:20 Labs: Laboratory Results - last 24 hr 10/21/23 20:20: WBC 12.4 H, RBC 3.59 L, Hgb 11.8 L, Hct 34.8 L, MCV 96.9, MCH 32.9 H, MCHC 33.9, RDW Std Deviation 46.5 H, RDW Coeff of Roz 13.2, Plt Count 233, MPV 10.7, Immature Gran % (Auto) 2.300 H, Neut % (Auto) 67.8, Lymph % (Auto) 19.4, [place] % (Auto) 9.3, Eos % (Auto) 0.6, Baso % (Auto) 0.6, Absolute Neuts (auto) 8.4 H, Absolute Lymphs (auto) 2.40, Nucleated RBC % 0, Syphilis Total Ab Non-reactive, Blood Type A POSITIVE, Antibody Screen NEGATIVE Physical Exam Const alert and no apparent distress Neck full ROM Chest inspection of chest normal Resp normal respiratory effort, normal air movement and no retractions Cardio regular rate and regular rhythm Extremity normal to inspection and full ROM Skin no rashes or lesions noted Psych thought process normal Assessment & Plan (1) Vaginal delivery: COMMENT: SM girl 40 ial (2) 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 Growth US Q4w (45%) PLAN: duplicated renal artery. peds following. to obtain follow up with [facility] PLAN: Plan s/p PPD # 1 1. routine post delivery care 2. breast feeding- support given 3. rh positive 4. rubella immune 5. anticipate d/c home tomorrow.
[2023-10-22] MEDS: Acetaminophen 500 MG Tablet 1000 MG PO (17:37)
[2023-10-22] MEDS: SimETHICONE 80 MG Chewable Tablet PO (17:37)
[2023-10-23] MEDS: Naproxen 500 MG Tablet PO (01:11)
[2023-10-23 02:20] VITALS: BP 126/87; PULSE 80; RESP 16; TEMP 36.3; O2SAT 98
[2023-10-23] MEDS: Acetaminophen 500 MG Tablet 1000 MG PO (08:05)
[2023-10-23 08:10] VITALS: BP 113/76; PULSE 66; RESP 16; TEMP 36.2; O2SAT 98
--- NOTE | 2023-10-23 08:12 | PCM.PN.OB ---
Subjective Subjective Patient doing well without complaints. Tolerating PO. Ambulating and voiding without difficulty. Feeding well. Denies chest pain, shortness of breath, calf pain/swelling, fevers, chills, lightheadedness. Objective Data Objective Data Vital Signs: Vital Signs Temp Pulse Resp BP Pulse Ox O2 Del Method 97.3 F L 80 16 126/87 H 98 Room Air 10/23/23 02:20 10/23/23 02:20 10/23/23 02:20 10/23/23 02:20 10/23/23 02:20 10/23/23 02:20 Oxygen Delivery Method Room Air Weight: 188 lb 9.6 oz Body Mass Index (BMI) 32.3 Intake & Output: Intake and Output for Last 24 Hours 10/21/23 10/22/23 10/23/23 23:59 23:59 23:59 Intake Total 614.17 / 614.17 250 / 250 Output Total 1500 / 1500 Balance 614.17 / 614.17 -1250 / -1250 Lab / Micro Data 10/21/23 20:20 Physical Exam Const alert and oriented x3 HEENT normocephalic Eyes PERRL Neck full ROM Resp normal respiratory effort GI soft to palpation GI Narrative: FF below U Assessment & Plan (1) Vaginal delivery: COMMENT: girl 40 ial [place]ine PLAN: Plan s/p PPD # 2 1. routine post delivery care 2. breast feeding- support given 3. rh positive 4. rubella immune 5. home today
[2023-10-23 13:10] VITALS: BP 118/77; PULSE 84; RESP 18; TEMP 36.4; O2SAT 98
== END 2023-10-23 14:40 | disposition home or self-care (01) | DRG 807 ==
LOC: WPOUT 20:13 → WP 23:29
PROVIDERS: Admitting Provider Obstetrics & Gynecology; PCP Physician Assistant; Referring Provider Obstetrics & Gynecology; Visit Provider Obstetrics & Gynecology
DX: O35.8XX0 Maternal care for other (suspected) fetal abnormality and damage, not applicable or unspecified (principal); Z37.0 Single live birth; Z3A.39 39 weeks gestation of pregnancy; Z79.82 Long term (current) use of aspirin; Z79.899 Other long term (current) drug therapy; Z86.16 Personal history of COVID-19; Z87.440 Personal history of urinary (tract) infections
CPT/HCPCS: 59025; 59050; 85025; 86780; 86850; 86900; 86901; 99221; J7120; G0378